=== PATIENT | female | born 1990 | race Hispanic/Latino ===

== ENCOUNTER 2022-01-06 10:54 | Emergency (ER) | payer MEDICAID ==
[2022-01-06 11:13] VITALS: BP 119/68
--- NOTE | 2022-01-06 14:06 | Emergency Department Report ---
ED ENT HPI - General Chief complaint: Dyspnea/Respdistress Stated complaint: ILL Time Seen by Provider: 01/06/22 13:52 Source: patient Mode of arrival: Ambulatory Limitations: No Limitations - History of Present Illness Initial comments: 31-year-old female with no past medical history presents to the emergency department with 3-day history of scratchy throat, sneezing, and cough. She denies fever shortness of breath, and fatigue. MD complaint: sore throat -: Gradual, days(s) (3) Location: throat Severity scale (0 -10): 0 Associated Symptoms: cough, sore throat, rhinorrhea. denies: fever, gum swelling, toothache, pain with swallowing, tinnitus, hearing loss, discharge from ear - Related Data Previous Rx's Medication Instructions Recorded Last Taken Type Cetirizine HCl/Pseudoephedrine 1 each PO BID #30 tab 01/06/22 Unknown Rx [Zyrtec-D Tablet] Allergies Allergy/AdvReac Type Severity Reaction Status Date / Time abilify Allergy Vomiting Uncoded 01/06/22 11:11 ED Dental HPI - General Chief complaint: Dyspnea/Respdistress Stated complaint: ILL Time Seen by Provider: 01/06/22 13:52 Source: patient Mode of arrival: Ambulatory Limitations: No Limitations - Related Data Previous Rx's Medication Instructions Recorded Last Taken Type Cetirizine HCl/Pseudoephedrine 1 each PO BID #30 tab 01/06/22 Unknown Rx [Zyrtec-D Tablet] Allergies Allergy/AdvReac Type Severity Reaction Status Date / Time abilify Allergy Vomiting Uncoded 01/06/22 11:11 ED Review of Systems ROS: Stated complaint: ILL Other details as noted in HPI Comment: All other systems reviewed and negative Constitutional: denies: chills, fever Eyes: denies: vision change ENT: throat pain, congestion. denies: ear pain, dental pain Respiratory: cough. denies: orthopnea, shortness of breath, SOB with exertion, SOB at rest, stridor, wheezing, other Cardiovascular: denies: chest pain, palpitations, dyspnea on exertion, orthopnea, edema, syncope, paroxysmal nocturnal dyspnea Gastrointestinal: denies: abdominal pain, nausea, vomiting, diarrhea, hematemesis, melena, hematochezia Skin: denies: rash, lesions Neurological: denies: headache, weakness, numbness Psychiatric: denies: anxiety ED Past Medical Hx - Medications Home Medications: Home Medications Medication Instructions Recorded Confirmed Last Taken Type Cetirizine HCl/Pseudoephedrine 1 each PO BID #30 tab 01/06/22 Unknown Rx [Zyrtec-D Tablet] ED Physical Exam - General Limitations: No Limitations General appearance: alert, in no apparent distress - Head Head exam: Present: atraumatic, normocephalic - Eye Eye exam: Present: normal appearance. Absent: conjunctival injection - ENT ENT exam: Absent: normal exam (Bilateral nasal mucosal edema and turbinate swelling. Tenderness to frontal sinus area), normal orophraynx (Erythema to posterior oropharynx) - Expanded ENT Exam Expanded Throat exam: Positive: normal inspection, tonsillar erythema. Negative: tonsillomegaly, tonsillar exudate, R peritonsillar mass, L peritonsillar mass - Neck Neck exam: Present: normal inspection. Absent: lymphadenopathy - Respiratory Respiratory exam: Present: normal lung sounds bilaterally. Absent: respiratory distress, wheezes, rales, rhonchi, stridor, chest wall tenderness - Cardiovascular Cardiovascular Exam: Present: regular rate, normal heart sounds - GI/Abdominal GI/Abdominal exam: Present: soft, normal bowel sounds. Absent: distended, tenderness, guarding, rebound, rigid - Extremities Exam Extremities exam: Present: normal inspection - Back Exam Back exam: Present: normal inspection. Absent: CVA tenderness (R), CVA tenderness (L), vertebral tenderness - Neurological Exam Neurological exam: Present: alert, oriented X3, normal gait, reflexes normal. Absent: motor sensory deficit - Psychiatric Psychiatric exam: Present: normal affect, normal mood - Skin Skin exam: Present: warm, dry, intact, normal color ED Course Vital Signs 01/06/22 11:12 Temperature 98.2 F Pulse Rate 69 Respiratory 20 Rate Blood Pressure 119/68 O2 Sat by Pulse 98 Oximetry ED Medical Decision Making - Medical Decision Making 31-year-old female with no past medical history presents to the emergency department with 3-day history of scratchy throat, sneezing, and cough. She denies fever shortness of breath, and fatigue. Complaints and exam consistent with sinusitis. No acute distress noted. Patient will be discharged home with prescription for Zyrtec-D to take for the next few weeks. She is advised to take medication as prescribed, drink plenty of noncaffeinated fluids, and follow-up with her primary care provider if no improvement or worsening symptoms. She verbalized understanding of and agreement with plan of care. Critical care attestation.: If time is entered above; I have spent that time in minutes in the direct care of this critically ill patient, excluding procedure time. ED Disposition Clinical Impression: Sinusitis Qualifiers: Sinusitis location: frontal Chronicity: acute Recurrence: non-recurrent Qualified Code(s): J01.10 - Acute frontal sinusitis, unspecified Disposition: 01 HOME / SELF CARE / HOMELESS Is pt being admited?: No Does the pt Need Aspirin: No Condition: Stable Instructions: Sinusitis, Adult, Gnzx-mo-Cian, How to Perform a Sinus Rinse Additional Instructions: Take medications as prescribed. Follow-up with primary care provider if no improvement or worsening symptoms. Prescriptions: Cetirizine HCl/Pseudoephedrine [Zyrtec-D Tablet] 1 each PO BID #30 tab Referrals: LUZ ELENA BARTON MD [Referring] - 3-5 Days Time of Disposition: 14:06
== END 2022-01-06 14:25 | disposition home or self-care (01) ==
LOC: ED 10:54
DX: J32.9 Chronic sinusitis, unspecified (principal); Z88.8 Allergy status to other drugs, medicaments and biological substances; Z79.899 Other long term (current) drug therapy
CPT/HCPCS: 99282

== ENCOUNTER 2022-02-07 01:02 | Emergency (ER) | payer MEDICAID ==
[2022-02-07 01:27] VITALS: BP 130/90
[2022-02-07 02:22] LABS: Basophils # (Auto) 0.1 K/mm3 (0.0-0.1); Basophils % (Auto) 0.5 % (0.0-1.8); Eosinophils # (Auto) 0.4 K/mm3 (0.0-0.4); Eosinophils % (Auto) 3.6 % (0.0-4.3); Hematocrit 36.7 % (30.3-42.9); Hemoglobin 12.3 gm/dl (10.1-14.3); Lymphocytes % (Auto) 29.9 % (13.4-35.0); Mean Corpuscular HGB Conc 34 % (30-34); Mean Corpuscular Volume 85 fl (79-97); Monocytes # (Auto) 0.7 K/mm3 (0.0-0.8); Monocytes % (Auto) 6.6 % (0.0-7.3); Platelet Count 253 K/mm3 (140-440); Red Blood Count 4.31 M/mm3 (3.65-5.03); Red Cell Distribution Width 15.3 % (13.2-15.2)
--- NOTE | 2022-02-07 02:26 | Emergency Department Report ---
ED Psych HPI - General Chief Complaint: Medical Clearance Stated Complaint: MATEO EVBILLY Time Seen by Provider: 02/07/22 01:51 Source: EMS Mode of arrival: Ambulatory - History of Present Illness Initial Comments: Patient is a 31-year-old female presenting to ED requesting placement in a psychiatric facility for auditory and visual hallucinations. States she threw away her psych medications due to not wanting to take them anymore. States the voices are telling her that she is not good enough. She denies SI or HI. - Related Data Previous Rx's Medication Instructions Recorded Last Taken Type Cetirizine HCl/Pseudoephedrine 1 each PO BID #30 tab 01/06/22 Unknown Rx [Zyrtec-D Tablet] Allergies Allergy/AdvReac Type Severity Reaction Status Date / Time abilify Allergy Vomiting Uncoded 01/06/22 11:11 ED Review of Systems ROS: Stated complaint: MAETO EVAL Other details as noted in HPI Comment: All other systems reviewed and negative Constitutional: no symptoms reported. denies: chills, fever Respiratory: denies: cough, shortness of breath, wheezing Cardiovascular: denies: chest pain, palpitations Endocrine: no symptoms reported Gastrointestinal: denies: abdominal pain, nausea, diarrhea Genitourinary: denies: urgency, dysuria, discharge Musculoskeletal: denies: back pain, joint swelling, arthralgia Skin: denies: rash, lesions Neurological: denies: headache, weakness, paresthesias Psychiatric: as per HPI, auditory hallucinations, visual hallucinations ED Past Medical Hx - Past Medical History Previous Medical History?: Yes Additional medical history: schizophrenia, anxiety, depression, bipolar - Social History Smoking Status: Current Every Day Smoker - Medications Home Medications: Home Medications Medication Instructions Recorded Confirmed Last Taken Type Cetirizine HCl/Pseudoephedrine 1 each PO BID #30 tab 01/06/22 Unknown Rx [Zyrtec-D Tablet] ED Physical Exam - General Limitations: No Limitations General appearance: alert, in no apparent distress - Head Head exam: Present: atraumatic, normocephalic - Eye Eye exam: Present: normal appearance - Respiratory Respiratory exam: Present: normal lung sounds bilaterally. Absent: respiratory distress - Cardiovascular Cardiovascular Exam: Present: regular rate, normal rhythm. Absent: systolic murmur, diastolic murmur, rubs, gallop - GI/Abdominal GI/Abdominal exam: Present: soft - Neurological Exam Neurological exam: Present: alert, oriented X3, CN II-XII intact - Psychiatric Psychiatric exam: Present: flat affect. Absent: homicidal ideation, suicidal ideation - Skin Skin exam: Present: warm, dry, intact, normal color ED Course Vital Signs 02/07/22 01:24 Temperature 97.6 F Pulse Rate 92 H Respiratory 18 Rate Blood Pressure 130/90 O2 Sat by Pulse 98 Oximetry ED Medical Decision Making - Lab Data Result diagrams: 02/07/22 02:02 02/07/22 02:02 Critical care attestation.: If time is entered above; I have spent that time in minutes in the direct care of this critically ill patient, excluding procedure time. ED Disposition Condition: Stable
[2022-02-07 02:38] LABS: Alanine Aminotransferase 11 units/L (7-56); Albumin 4.7 g/dL (3.9-5); BUN/Creatinine Ratio 16; Blood Urea Nitrogen 11 mg/dL (7-17); Calcium 9.2 mg/dL (8.4-10.2); Hemolysis Index 3
[2022-02-07] MEDS ORDERED: ONDANSETRON 4 MG/2 ML INJ ONE (09:13)
[2022-02-07] MEDS ORDERED: SUCCINYLCHOLINE CHLORIDE 200 MG/10 ML INJ MDV ONE (09:13)
[2022-02-07] MEDS ORDERED: ROCURONIUM 50 MG/5 ML INJ IV ONE ×2 (09:13)
[2022-02-07] MEDS ORDERED: fentaNYL 100 MCG/2 ML INJ ONE (09:14)
--- NOTE | 2022-02-07 10:11 | Consultation ---
History of Present Illness - Reason for Consult Consult date: 02/07/22 Reason for consult: mental health evaluation - History of Present Psychiatric Illness The patient is a 31 year old female with history of Schizophrenia. The patient is calm, alert and oriented x3. The patient reports that " I need to get back on my medications." She is unable to recall what medications she was previously on. She denies any current suicidal/homicidal ideation and denies hallucinations. PAST PSYCHIATRIC HISTORY Diagnoses: Schizophrenia Suicide attempts or Self-harm behavior: Yes Prior psychiatric hospitalizations: Yes Substance Abuse history: Denies Previous psychiatric medications tried: Unable to recall Outpatient treatment: Unknown PAST MEDICAL HISTORY: None reported Family Psychiatric History: None reported or documented SOCIAL HISTORY Marital Status: Single Living Arrangements: Lives in a correction Employment Status:Unemployed Access to guns/weapons: Denies Education: 10th grade History of Abuse: Denies Legal History: Incarceration REVIEW OF SYSTEMS Constitutional: Negative for weight loss ENT: Negative for stridor Respiratory: Negative for cough or hemoptysis All other systems reviewed and are negative MENTAL STATUS EXAMINATION General Appearance and Behavior: Age appropriate, good hygiene, wearing a ppropriate clothes, good eye contact, anxious, cooperative Cooperation: Participating/engaged Psychomotor Behavior: Psychomotor normal Mood:Ok Affect and affective range: congruent with stated mood Thought Process: Goal directed Thought Content: reality oriented Speech: Normal tone and pace Suicidal Ideation:Denies Homicidal Ideation: Denies Hallucinations: Denies Delusions: None Impulse Control: Limited Insight and Judgment: Limited insight and judgment Memory: Limited Attention: attentive Orientation: Alert, oriented Diagnoses: HX Schizophrenia Treatment Plan Continue home meds Seroquel 100mg po QHS PSYCHOTHERAPY: Supportive psychotherapy provided MEDICAL: Per primary team DELIRIUM PRECAUTIONS: Please re-orient patient frequently, keep lights on during the day, and minimize benzodiazepines and opiates as these medications could w orsen patient's confusion. 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 Cyanide Pot Hardener will provide patient with psychiatric outpatient resources. Will sign off. Thanks. Thank you for the consult. Case staffed with Dr. Clark Medications and Allergies Medications and Allergies Allergies Allergy/AdvReac Type Severity Reaction Status Date / Time abilify Allergy Vomiting Uncoded 01/06/22 11:11 Home Medications Medication Instructions Recorded Confirmed Last Taken Type Cetirizine HCl/Pseudoephedrine 1 each PO BID #30 tab 01/06/22 Unknown Rx [Zyrtec-D Tablet] QUEtiapine [SEROquel] 100 mg PO QHS 30 Days #30 tab 02/07/22 Unknown Rx Mental Status Exam - Vital signs Last Vital Signs Temp 97.6 F 02/07/22 01:24 Pulse 92 H 02/07/22 01:24 Resp 18 02/07/22 01:24 BP 130/90 02/07/22 01:24 Pulse Ox 100 02/07/22 01:27 Results Result Diagrams: 02/07/22 02:02 02/07/22 02:02 Abnormal lab results 02/07/22 02/07/22 02/07/22 Range/Units 02:02 02:02 02:02 RDW 15.3 H (13.2-15.2) % Glucose 115 H (65-100) mg/dL Salicylates < 0.3 L (2.8-20.0) mg/dL Acetaminophen (10.0-30.0) ug/mL 02/07/22 Range/Units 02:02 RDW (13.2-15.2) % Glucose (65-100) mg/dL Salicylates (2.8-20.0) mg/dL Acetaminophen 5.0 L (10.0-30.0) ug/mL All other labs normal.
--- NOTE | 2022-02-07 11:31 | Event Note ---
Date: 02/07/22 no events overnight , assessed by psych , mediclly cleared , will discharge with meds with OP follow up
== END 2022-02-07 12:00 | disposition home or self-care (01) ==
LOC: ED 01:02 → EEVIPCON 01:02 → ED 12:00
DX: F17.200 Nicotine dependence, unspecified, uncomplicated (principal); F20.9 Schizophrenia, unspecified; F41.9 Anxiety disorder, unspecified; F31.9 Bipolar disorder, unspecified
CPT/HCPCS: 36415; 80053; 85025; 99284; J0330; J3490; 80320; G0480; J2405; J3010

== ENCOUNTER 2022-02-08 02:04 | Emergency (ER) | payer MEDICAID ==
--- NOTE | 2022-02-08 02:25 | Emergency Department Report ---
ED General Adult HPI - General Chief complaint: Psych Stated complaint: im depressed Source: patient, EMS ( EMS documentation not available at time of chart dictation ), RN notes reviewed, old records reviewed Mode of arrival: Ambulatory Limitations: No Limitations - History of Present Illness Initial comments: This patient is a 31-year-old female who presents to the ER today with a complaint of painless depression. She was seen in this department yesterday for similar symptoms. She was seen, treated, and dispositioned appropriately, given outpatient resources and prescri ptions. The patient reports a presents today with EMS with a complaint of "I am depressed." The patient denies physical pain. The patient states that "everything is bothering me." The patient then informed the charge nurse and myself that she is suicidal because she cannot get herself to a mental hospital. The patient stated that she took an ambulance here because she does not have money to get herself to a mental hospital. The patient refuses to allow a physical exam, and also refuses to answer additional questions about review of systems Consistency: constant - Related Data Previous Rx's Medication Instructions Recorded Last Taken Type Cetirizine HCl/Pseudoephedrine 1 each PO BID #30 tab 01/06/22 Unknown Rx [Zyrtec-D Tablet] QUEtiapine [SEROquel] 100 mg PO QHS 30 Days #30 tab 02/07/22 Unknown Rx Allergies Allergy/AdvReac Type Severity Reaction Status Date / Time abilify Allergy Vomiting Uncoded 01/06/22 11:11 ED Review of Systems ROS: Stated complaint: Other details as noted in HPI Cardiovascular: denies: chest pain Musculoskeletal: denies: back pain Psychiatric: anxiety, depression, suicidal thoughts ED Past Medical Hx - Past Medical History Previous Medical History?: Yes Additional medical history: schizophrenia, anxiety, depression, bipolar - Social History Smoking Status: Never Smoker - Medications Home Medications: Home Medications Medication Instructions Recorded Confirmed Last Taken Type Cetirizine HCl/Pseudoephedrine 1 each PO BID #30 tab 01/06/22 Unknown Rx [Zyrtec-D Tablet] QUEtiapine [SEROquel] 100 mg PO QHS 30 Days #30 tab 02/07/22 Unknown Rx ED Physical Exam - General Limitations: No Limitations General appearance: alert, in no apparent distress - Head Head exam: Present: atraumatic, normocephalic - Eye Eye exam: Present: normal appearance, EOMI. Absent: nystagmus - ENT ENT exam: Present: normal exam, normal orophraynx, mucous membranes moist, normal external ear exam - Neck Neck exam: Present: normal inspection, full ROM - Respiratory Respiratory exam: Absent: respiratory distress, stridor - Extremities Exam Extremities exam: Present: normal inspection, full ROM - Back Exam Back exam: Present: normal inspection, full ROM - Neurological Exam Neurological exam: Present: alert, normal gait, other (There is no facial droop. The tongue is midline. EOMI. 5 out of 5 strength in 4 extremities.) - Psychiatric Psychiatric exam: Present: agitated, anxious - Skin Skin exam: Present: dry, normal color ED Course Vital Signs 02/08/22 02/08/22 02:08 02:47 Temperature 97.9 F 98.4 F Pulse Rate 86 83 Respiratory 16 18 Rate Blood Pressure 130/96 Blood Pressure 115/85 [Right] O2 Sat by Pulse 98 95 Oximetry - Reevaluation(s) Reevaluation #1: 02/08/22 03:56 Laboratory studies are unremarkable. Start Macrobid for bacteriuria with pyuria. COVID swab pending. Emergency room will follow along as the patient provides a COVID sample. At this point time, this patient does not appear to have an immediate medical contraindication to psychiatric admission, evaluation, consultation and placement. I anticipate that the psychiatric team will agree that the patient is malingering and discharged with outpatient resources. ED Medical Decision Making - Lab Data Result diagrams: 02/08/22 02:37 02/08/22 02:37 Vital Signs 02/08/22 02/08/22 02:08 02:47 Temperature 97.9 F 98.4 F Pulse Rate 86 83 Respiratory 16 18 Rate Blood Pressure 130/96 Blood Pressure 115/85 [Right] O2 Sat by Pulse 98 95 Oximetry Lab Results 02/08/22 02/08/22 02/08/22 Range/Units 02:37 02:37 02:37 WBC (4.5-11.0) K/mm3 RBC (3.65-5.03) M/mm3 Hgb (10.1-14.3) gm/dl Hct (30.3-42.9) % MCV (79-97) fl MCH (28-32) pg MCHC (30-34) % RDW (13.2-15.2) % Plt Count (140-440) K/mm3 Sodium 139 (137-145) mmol/L Potassium 3.5 L (3.6-5.0) mmol/L Chloride 102.9 (98-107) mmol/L Carbon Dioxide 21 L (22-30) mmol/L Anion Gap 19 mmol/L BUN 11 (7-17) mg/dL Creatinine 0.7 (0.6-1.2) mg/dL Estimated GFR > 60 ml/min BUN/Creatinine Ratio 16 % Glucose 111 H (65-100) mg/dL Calcium 9.3 (8.4-10.2) mg/dL HCG, Qual (Negative) Urine Color (Yellow) Urine Turbidity (Clear) Urine pH (5.0-7.0) Ur Specific Schurz (1.003-1.030) Urine Protein (Negative) mg/dL Urine Glucose (UA) (Negative) mg/dL Urine Ketones (Negative) mg/dL Urine Blood (Negative) Urine Nitrite (Negative) Urine Bilirubin (Negative) Urine Urobilinogen (<2.0) mg/dL Ur Leukocyte Esterase (Negative) Urine WBC (Auto) (0.0-6.0) /HPF Urine RBC (Auto) (0.0-6.0) /HPF U Epithel Cells (Auto) (0-13.0) /HPF Urine Bacteria (Auto) (Negative) /HPF Urine Mucus /HPF Urine Yeast (Budding) /HPF Salicylates < 0.3 L (2.8-20.0) mg/dL Urine Opiates Screen Urine Methadone Screen Acetaminophen 5.0 L (10.0-30.0) ug/mL Ur Barbiturates Screen Ur Phencyclidine Scrn Ur Amphetamines Screen U Benzodiazepines Scrn Urine Cocaine Screen U Marijuana (THC) Screen Drugs of Abuse Note Plasma/Serum Alcohol (0-0.07) % 02/08/22 02/08/22 02/08/22 Range/Units 02:37 02:37 02:37 WBC 11.4 H (4.5-11.0) K/mm3 RBC 4.46 (3.65-5.03) M/mm3 Hgb 12.7 (10.1-14.3) gm/dl Hct 38.2 (30.3-42.9) % MCV 86 (79-97) fl MCH 28 (28-32) pg MCHC 33 (30-34) % RDW 15.2 (13.2-15.2) % Plt Count 282 (140-440) K/mm3 Sodium (137-145) mmol/L Potassium (3.6-5.0) mmol/L Chloride (98-107) mmol/L Carbon Dioxide (22-30) mmol/L Anion Gap mmol/L BUN (7-17) mg/dL Creatinine (0.6-1.2) mg/dL Estimated GFR ml/min BUN/Creatinine Ratio % Glucose (65-100) mg/dL Calcium (8.4-10.2) mg/dL HCG, Qual Negative (Negative) Urine Color (Yellow) Urine Turbidity (Clear) Urine pH (5.0-7.0) Ur Specific Schurz (1.003-1.030) Urine Protein (Negative) mg/dL Urine Glucose (UA) (Negative) mg/dL Urine Ketones (Negative) mg/dL Urine Blood (Negative) Urine Nitrite (Negative) Urine Bilirubin (Negative) Urine Urobilinogen (<2.0) mg/dL Ur Leukocyte Esterase (Negative) Urine WBC (Auto) (0.0-6.0) /HPF Urine RBC (Auto) (0.0-6.0) /HPF U Epithel Cells (Auto) (0-13.0) /HPF Urine Bacteria (Auto) (Negative) /HPF Urine Mucus /HPF Urine Yeast (Budding) /HPF Salicylates (2.8-20.0) mg/dL Urine Opiates Screen Urine Methadone Screen Acetaminophen (10.0-30.0) ug/mL Ur Barbiturates Screen Ur Phencyclidine Scrn Ur Amphetamines Screen U Benzodiazepines Scrn Urine Cocaine Screen U Marijuana (THC) Screen Drugs of Abuse Note Plasma/Serum Alcohol < 0.01 (0-0.07) % 02/08/22 02/08/22 Range/Units 02:42 02:42 WBC (4.5-11.0) K/mm3 RBC (3.65-5.03) M/mm3 Hgb (10.1-14.3) gm/dl Hct (30.3-42.9) % MCV (79-97) fl MCH (28-32) pg MCHC (30-34) % RDW (13.2-15.2) % Plt Count (140-440) K/mm3 Sodium (137-145) mmol/L Potassium (3.6-5.0) mmol/L Chloride (98-107) mmol/L Carbon Dioxide (22-30) mmol/L Anion Gap mmol/L BUN (7-17) mg/dL Creatinine (0.6-1.2) mg/dL Estimated GFR ml/min BUN/Creatinine Ratio % Glucose (65-100) mg/dL Calcium (8.4-10.2) mg/dL HCG, Qual (Negative) Urine Color Yellow (Yellow) Urine Turbidity Clear (Clear) Urine pH 5.0 (5.0-7.0) Ur Specific Schurz 1.030 (1.003-1.030) Urine Protein 30 mg/dl (Negative) mg/dL Urine Glucose (UA) Neg (Negative) mg/dL Urine Ketones Neg (Negative) mg/dL Urine Blood Lg (Negative) Urine Nitrite Neg (Negative) Urine Bilirubin Neg (Negative) Urine Urobilinogen 4.0 (<2.0) mg/dL Ur Leukocyte Esterase Neg (Negative) Urine WBC (Auto) 11.0 H (0.0-6.0) /HPF Urine RBC (Auto) 5.0 (0.0-6.0) /HPF U Epithel Cells (Auto) 4.0 (0-13.0) /HPF Urine Bacteria (Auto) 1+ (Negative) /HPF Urine Mucus 3+ /HPF Urine Yeast (Budding) Few /HPF Salicylates (2.8-20.0) mg/dL Urine Opiates Screen Presumptive negative Urine Methadone Screen Presumptive negative Acetaminophen (10.0-30.0) ug/mL Ur Barbiturates Screen Presumptive negative Ur Phencyclidine Scrn Presumptive negative Ur Amphetamines Screen Presumptive negative U Benzodiazepines Scrn Presumptive negative Urine Cocaine Screen Presumptive negative U Marijuana (THC) Screen Presumptive positive Drugs of Abuse Note Disclamer Plasma/Serum Alcohol (0-0.07) % - Medical Decision Making Differential diagnosis, including but not limited to: Malingering, secondary gain, behavioral health screening examination Assessment and plan: 31-year-old female who was medically cleared yesterday, giv en outpatient resources, presented today with a complaint of wanting to go to a mental hospital, when informed that she would not be able to go to a mental hospital because she does not meet 1013 criteria, the patient then started to endorse suicidality. I highly suspect that this patient is malingering for the purposes of secondary gain. Nevertheless, place patient on 1013, check appropriate laboratory studies, obtain psychiatric consultation. Reassess after labs Patient refused a physical examination. Her recent documented physical exam is benign and unremarkable. Her external physical examination from observation appears to be unremarkable Critical care attestation.: If time is entered above; I have spent that time in minutes in the direct care of this critically ill patient, excluding procedure time. ED Disposition Clinical Impression: Malingering, Medical clearance for psychiatric admission, Depression Disposition: [address] [place] [address] HOSPITAL Is pt being admited?: No Does the pt Need Aspirin: No Condition: Good
[2022-02-08] MEDS ORDERED: LORazepam 2 MG/ML VIAL IM PRN (02:27)
[2022-02-08] MEDS ORDERED: HALOPERIDOL LACTATE 5 MG/1 ML INJ IM PRN (02:27)
[2022-02-08 03:10] LABS: Hematocrit 38.2 % (30.3-42.9); Hemoglobin 12.7 gm/dl (10.1-14.3); Mean Corpuscular HGB Conc 33 % (30-34); Mean Corpuscular Volume 86 fl (79-97); Platelet Count 282 K/mm3 (140-440); Red Blood Count 4.46 M/mm3 (3.65-5.03); Red Cell Distribution Width 15.2 % (13.2-15.2)
[2022-02-08 03:17] LABS: Blood Urea Nitrogen 11 mg/dL (7-17); Calcium 9.3 mg/dL (8.4-10.2); Hemolysis Index 4
[2022-02-08 03:21] LABS: BUN/Creatinine Ratio 16
[2022-02-08 03:37] LABS: Amphetamine Screen,Urine PRESUMPTIVE NEGATIVE; Benzodiazepines Screen,Urine PRESUMPTIVE NEGATIVE; Cannabinoid Screen,Urine PRESUMPTIVE POSITIVE; Cocaine Screen,Urine PRESUMPTIVE NEGATIVE; Methadone Screen,Urine PRESUMPTIVE NEGATIVE; Opiate Screen,Urine PRESUMPTIVE NEGATIVE
[2022-02-08 03:43] LABS: Bacteria,Urine 1+ /HPF (Negative); Bilirubin,Urine NEG (Negative); Blood,Urine LG (Negative); Color,Urine Yellow (Yellow); Mucus,Urine 3+ /HPF
[2022-02-08] MEDS: NITROFURANTOIN MONOHYD/M-CRYST 100 MG CAP PO SCH ×3 (09:22→22:57)
--- NOTE | 2022-02-08 11:34 | Consultation ---
History of Present Illness - Reason for Consult Consult date: 02/08/22 Reason for consult: Hallucinations/ SI - History of Present Psychiatric Illness The patient is a 31 year old female with history of Schizophrenia. The patient is calm, alert and orientedx2. The patient was discharged yesterday; today, the patient states that " I'm seeing things and hearing things, I feel like they're rapping me." The patient endorses depression and suicidal ideation with no plan. PAST PSYCHIATRIC HISTORY Diagnoses: Schizophrenia Suicide attempts or Self-harm behavior: Yes Prior psychiatric hospitalizations: Yes Substance Abuse history: Denies Previous psychiatric medications tried: Unable to recall Outpatient treatment: Unknown PAST MEDICAL HISTORY: None reported Family Psychiatric History: None reported or documented SOCIAL HISTORY Marital Status: Single Living Arrangements: Lives in a long term Employment Status:Unemployed Access to guns/weapons: Denies Education: 10th grade History of Abuse: Denies Legal History: Incarceration REVIEW OF SYSTEMS Constitutional: Negative for weight loss ENT: Negative for stridor Respiratory: Negative for cough or hemoptysis All other systems reviewed and are negative MENTAL STATUS EXAMINATION General Appearance and Behavior: Age appropriate, good hygiene, wearing approp riate clothes, good eye contact, anxious, cooperative Cooperation: Participating/engaged Psychomotor Behavior: Psychomotor normal Mood:Ok Affect and affective range: congruent with stated mood Thought Process: Goal directed Thought Content: reality oriented Speech: Normal tone and pace Suicidal Ideation:Denies Homicidal Ideation: Denies Hallucinations: Denies Delusions: None Impulse Control: Limited Insight and Judgment: Limited insight and judgment Memory: Limited Attention: attentive Orientation: Alert, oriented Diagnoses: Schizophrenia Treatment Plan Continue home meds Seroquel 100mg po QHS [id number] po BID PSYCHOTHERAPY: Supportive psychotherapy provided MEDICAL: Per primary team DELIRIUM PRECAUTIONS: Please re-orient patient frequently, keep lights on during the day, and minimize benzodiazepines and opiates as these medications could worsen patient's confusion. PRUNE WASHER: Per medical team DISPOSITION:Recommend acute psychiatric inpatient treatment. Will follow. Thanks. Thank you for the consult. Case staffed with Dr. Clark Medications and Allergies Medications and Allergies Allergies Allergy/AdvReac Type Severity Reaction Status Date / Time abilify Allergy Vomiting Uncoded 01/06/22 11:11 Home Medications Medication Instructions Recorded Confirmed Last Taken Type Cetirizine HCl/Pseudoephedrine 1 each PO BID #30 tab 01/06/22 Unknown Rx [Zyrtec-D Tablet] QUEtiapine [SEROquel] 100 mg PO QHS 30 Days #30 tab 02/07/22 Unknown Rx Active Meds: Active Medications Haloperidol Lactate (Haloperidol Lactate 5 Mg/1 Ml Inj) 5 mg IM Q6HR PRN PRN Reason: Agitation Lorazepam (Lorazepam 2 Mg/Ml Vial) 2 mg IM Q4HR PRN PRN Reason: Agitation Nitrofurantoin Macrocrystals (Nitrofurantoin Monohyd/M-Cryst 100 Mg Cap) 100 mg PO Q12HR STEPHANIE Stop: 02/14/22 10:01 Last Admin: 02/08/22 09:22 Dose: 100 mg Mental Status Exam - Vital signs Last Vital Signs Temp 98.4 F 02/08/22 02:47 Pulse 83 02/08/22 02:47 Resp 18 02/08/22 02:47 BP 115/85 02/08/22 02:47 Pulse Ox 95 02/08/22 02:47 Results Result Diagrams: 02/08/22 02:37 02/08/22 02:37 Abnormal lab results 02/08/22 02/08/22 02/08/22 Range/Units 02:37 02:37 02:37 WBC (4.5-11.0) K/mm3 Potassium 3.5 L (3.6-5.0) mmol/L Carbon Dioxide 21 L (22-30) mmol/L Glucose 111 H (65-100) mg/dL Urine WBC (Auto) (0.0-6.0) /HPF Salicylates < 0.3 L (2.8-20.0) mg/dL Acetaminophen 5.0 L (10.0-30.0) ug/mL 02/08/22 02/08/22 Range/Units 02:37 02:42 WBC 11.4 H (4.5-11.0) K/mm3 Potassium (3.6-5.0) mmol/L Carbon Dioxide (22-30) mmol/L Glucose (65-100) mg/dL Urine WBC (Auto) 11.0 H (0.0-6.0) /HPF Salicylates (2.8-20.0) mg/dL Acetaminophen (10.0-30.0) ug/mL All other labs normal.
--- NOTE | 2022-02-08 11:49 | Event Note ---
Date: 02/08/22 Patient is 31 years old female admitted to the emergency room for suicidal ideation. Vital signs stable. Labs reviewed and is unremarkable. Patient has been evaluated by psychiatric team and recommended inpatient psychiatric admission.
[2022-02-08] MEDS ORDERED: methylPREDNISolone Sod Succinate 125 MG/2 ML INJ ONE (12:10)
[2022-02-08] MEDS ORDERED: diphenhydrAMINE 25 MG/10 ML ORAL LIQUID ONE (12:11)
[2022-02-08] MEDS ORDERED: diphenhydrAMINE 50 MG/ML VIAL ONE (12:11)
[2022-02-08] MEDS ORDERED: ALBUTEROL 2.5 MG/3 ML NEBU IH ONE (12:42)
[2022-02-08] MEDS ORDERED: IPRATROPIUM 0.02% NEBU 2.5 ML IH ONE (12:42)
[2022-02-08] MEDS: QUEtiapine 25 MG TAB PO SCH (17:08)
[2022-02-08] MEDS ORDERED: QUEtiapine 100 MG TAB PO SCH (22:00)
--- NOTE | 2022-02-09 11:10 | Progress Note ---
Subjective - Reason for Consult Consult date: 02/09/22 Reason for consult: Mental health evaluation - Chief Complaint Chief complaint: The patient was seen today. She reports doing well. She reports sleep and appetite as godd. the patient denies any current suicidal/homicidal ideation and denies hallucinations. REVIEW OF SYSTEMS Constitutional: Negative for weight loss ENT: Negative for stridor Respiratory: Negative for cough or hemoptysis All other systems reviewed and are negative MENTAL STATUS EXAMINATION General Appearance and Behavior: Age appropriate, good hygiene, wearing appropriate clothes, good eye contact, anxious, cooperative Cooperation: Participating/engaged Psychomotor Behavior: Psychomotor normal Mood:Ok Affect and affective range: congruent with stated mood Thought Process: Goal directed Thought Content: reality oriented Speech: Normal tone and pace Suicidal Ideation:Denies Homicidal Ideation: Denies Hallucinations: Denies Delusions: None Impulse Control: Limited Insight and Judgment: Limited insight and judgment Memory: Limited Attention: attentive Orientation: Alert, oriented Diagnoses: Schizophrenia Treatment Plan Continue home meds Continue Seroquel 100mg po QHS PSYCHOTHERAPY: Supportive psychotherapy provided MEDICAL: Per primary team DELIRIUM PRECAUTIONS: Please re-orient patient frequently, keep lights on during the day, and minimize benzodiazepines and opiates as these medications could worsen patient's confusion. JANITOR HELPER: Per medical team DISPOSITION:Do not recommend acute psychiatric inpatient treatment. Coach Mechanic will provide patient with psychiatric outpatient resources. Will sign off. Thank you for the consult. Case staffed with Dr. Clark Medications and Allergies Mental Status Exam - Vital signs Last Vital Signs Temp 98.2 F 02/09/22 09:25 Pulse 70 02/09/22 09:25 Resp 18 02/09/22 09:25 BP 113/68 02/09/22 09:25 Pulse Ox 98 02/09/22 09:25
[2022-02-09] MEDS: QUEtiapine 25 MG TAB PO SCH (11:24)
[2022-02-09] MEDS: NITROFURANTOIN MONOHYD/M-CRYST 100 MG CAP PO SCH (11:24)
--- NOTE | 2022-02-09 12:42 | Event Note ---
Date: 02/09/22 The patient was evaluated in the emergency department for symptoms described in the history of present illness. He/she was evaluated in the context of the global COVID-19 pandemic, which necessitated consideration that the patient might be at risk for infection with the virus that causes COVID-19. Institutional protocols and algorithms that pertain to the evaluation of patients at risk for COVID-19 are in a state of rapid change based on information released by regulatory bodies including the CDC and federal and state organizations. These policies and algorithms were followed during the patient's care in the emergency department. Please note that these policies, procedures and recommendations changed on a rapid basis. Laboratory studies, vital signs, nursing documentation, ER documentation, and psychiatric documentation are reviewed and appreciated. Nursing team reports no acute events this morning or concerns. The patient is awake and does not appear to be in any acute distress The patient was deemed medically suitable for psychiatric disposition and placement during her initial ER evaluation. The patient continues to remain medically suitable for psychiatric placement and disposition. Psychiatry team have advised that 1013 is no longer necessary and may be discontinued. I medically cleared the patient on her initial ER evaluation. She may be discharged with Macrobid. She has received 4 doses of Macrobid while here in the emergency room for bacteriuria. Vital Signs 02/08/22 02/08/22 02/08/22 02:08 02:47 11:27 Temperature 97.9 F 98.4 F 98.7 F Pulse Rate 86 83 79 Respiratory 16 18 15 Rate Blood Pressure 130/96 Blood Pressure 115/85 104/75 [Right] O2 Sat by Pulse 98 95 99 Oximetry 02/08/22 02/09/22 02/09/22 15:39 09:25 11:21 Temperature 98.7 F 98.2 F Pulse Rate 68 70 Respiratory 15 18 18 Rate Blood Pressure Blood Pressure 119/81 113/68 [Right] O2 Sat by Pulse 99 98 99 Oximetry Lab Results 02/08/22 02/08/22 02/08/22 Range/Units 02:37 02:37 02:37 WBC (4.5-11.0) K/mm3 RBC (3.65-5.03) M/mm3 Hgb (10.1-14.3) gm/dl Hct (30.3-42.9) % MCV (79-97) fl MCH (28-32) pg MCHC (30-34) % RDW (13.2-15.2) % Plt Count (140-440) K/mm3 Sodium 139 (137-145) mmol/L Potassium 3.5 L (3.6-5.0) mmol/L Chloride 102.9 (98-107) mmol/L Carbon Dioxide 21 L (22-30) mmol/L Anion Gap 19 mmol/L BUN 11 (7-17) mg/dL Creatinine 0.7 (0.6-1.2) mg/dL Estimated GFR > 60 ml/min BUN/Creatinine Ratio 16 % Glucose 111 H (65-100) mg/dL Calcium 9.3 (8.4-10.2) mg/dL HCG, Qual (Negative) Urine Color (Yellow) Urine Turbidity (Clear) Urine pH (5.0-7.0) Ur Specific [place] (1.003-1.030) Urine Protein (Negative) mg/dL Urine Glucose (UA) (Negative) mg/dL Urine Ketones (Negative) mg/dL Urine Blood (Negative) Urine Nitrite (Negative) Urine Bilirubin (Negative) Urine Urobilinogen (<2.0) mg/dL Ur Leukocyte Esterase (Negative) Urine WBC (Auto) (0.0-6.0) /HPF Urine RBC (Auto) (0.0-6.0) /HPF U Epithel Cells (Auto) (0-13.0) /HPF Urine Bacteria (Auto) (Negative) /HPF Urine Mucus /HPF Urine Yeast (Budding) /HPF Salicylates < 0.3 L (2.8-20.0) mg/dL Urine Opiates Screen Urine Methadone Screen Acetaminophen 5.0 L (10.0-30.0) ug/mL Ur Barbiturates Screen Ur Phencyclidine Scrn Ur Amphetamines Screen U Benzodiazepines Scrn Urine Cocaine Screen U Marijuana (THC) Screen Drugs of Abuse Note Plasma/Serum Alcohol (0-0.07) % SARS-CoV-2 (PCR) (Negative) 02/08/22 02/08/22 02/08/22 Range/Units 02:37 02:37 02:37 WBC 11.4 H (4.5-11.0) K/mm3 RBC 4.46 (3.65-5.03) M/mm3 Hgb 12.7 (10.1-14.3) gm/dl Hct 38.2 (30.3-42.9) % MCV 86 (79-97) fl MCH 28 (28-32) pg MCHC 33 (30-34) % RDW 15.2 (13.2-15.2) % Plt Count 282 (140-440) K/mm3 Sodium (137-145) mmol/L Potassium (3.6-5.0) mmol/L Chloride (98-107) mmol/L Carbon Dioxide (22-30) mmol/L Anion Gap mmol/L BUN (7-17) mg/dL Creatinine (0.6-1.2) mg/dL Estimated GFR ml/min BUN/Creatinine Ratio % Glucose (65-100) mg/dL Calcium (8.4-10.2) mg/dL HCG, Qual Negative (Negative) Urine Color (Yellow) Urine Turbidity (Clear) Urine pH (5.0-7.0) Ur Specific [place] (1.003-1.030) Urine Protein (Negative) mg/dL Urine Glucose (UA) (Negative) mg/dL Urine Ketones (Negative) mg/dL Urine Blood (Negative) Urine Nitrite (Negative) Urine Bilirubin (Negative) Urine Urobilinogen (<2.0) mg/dL Ur Leukocyte Esterase (Negative) Urine WBC (Auto) (0.0-6.0) /HPF Urine RBC (Auto) (0.0-6.0) /HPF U Epithel Cells (Auto) (0-13.0) /HPF Urine Bacteria (Auto) (Negative) /HPF Urine Mucus /HPF Urine Yeast (Budding) /HPF Salicylates (2.8-20.0) mg/dL Urine Opiates Screen Urine Methadone Screen Acetaminophen (10.0-30.0) ug/mL Ur Barbiturates Screen Ur Phencyclidine Scrn Ur Amphetamines Screen U Benzodiazepines Scrn Urine Cocaine Screen U Marijuana (THC) Screen Drugs of Abuse Note Plasma/Serum Alcohol < 0.01 (0-0.07) % SARS-CoV-2 (PCR) (Negative) 02/08/22 02/08/22 02/08/22 Range/Units 02:42 02:42 09:30 WBC (4.5-11.0) K/mm3 RBC (3.65-5.03) M/mm3 Hgb (10.1-14.3) gm/dl Hct (30.3-42.9) % MCV (79-97) fl MCH (28-32) pg MCHC (30-34) % RDW (13.2-15.2) % Plt Count (140-440) K/mm3 Sodium (137-145) mmol/L Potassium (3.6-5.0) mmol/L Chloride (98-107) mmol/L Carbon Dioxide (22-30) mmol/L Anion Gap mmol/L BUN (7-17) mg/dL Creatinine (0.6-1.2) mg/dL Estimated GFR ml/min BUN/Creatinine Ratio % Glucose (65-100) mg/dL Calcium (8.4-10.2) mg/dL HCG, Qual (Negative) Urine Color Yellow (Yellow) Urine Turbidity Clear (Clear) Urine pH 5.0 (5.0-7.0) Ur Specific [place] 1.030 (1.003-1.030) Urine Protein 30 mg/dl (Negative) mg/dL Urine Glucose (UA) Neg (Negative) mg/dL Urine Ketones Neg (Negative) mg/dL Urine Blood Lg (Negative) Urine Nitrite Neg (Negative) Urine Bilirubin Neg (Negative) Urine Urobilinogen 4.0 (<2.0) mg/dL Ur Leukocyte Esterase Neg (Negative) Urine WBC (Auto) 11.0 H (0.0-6.0) /HPF Urine RBC (Auto) 5.0 (0.0-6.0) /HPF U Epithel Cells (Auto) 4.0 (0-13.0) /HPF Urine Bacteria (Auto) 1+ (Negative) /HPF Urine Mucus 3+ /HPF Urine Yeast (Budding) Few /HPF Salicylates (2.8-20.0) mg/dL Urine Opiates Screen Presumptive negative Urine Methadone Screen Presumptive negative Acetaminophen (10.0-30.0) ug/mL Ur Barbiturates Screen Presumptive negative Ur Phencyclidine Scrn Presumptive negative Ur Amphetamines Screen Presumptive negative U Benzodiazepines Scrn Presumptive negative Urine Cocaine Screen Presumptive negative U Marijuana (THC) Screen Presumptive positive Drugs of Abuse Note Disclamer Plasma/Serum Alcohol (0-0.07) % SARS-CoV-2 (PCR) Negative (Negative)
[2022-02-09 14:24] VITALS: BP 109/69
== END 2022-02-09 14:24 | disposition home or self-care (01) ==
LOC: ED 02:04
DX: F32.A Depression, unspecified (principal); Z76.5 Malingerer [conscious simulation]; Z13.30 Encounter for screening examination for mental health and behavioral disorders, unspecified; Z91.09 Other allergy status, other than to drugs and biological substances; Z79.899 Other long term (current) drug therapy; Z20.822 Contact with and (suspected) exposure to COVID-19
CPT/HCPCS: 36415; 80048; 80307; 81001; 84703; 85027; 87086; 99284; J1200; J2930; Q0163; U0003; 80320; G0480

== ENCOUNTER 2022-02-17 03:26 | Emergency (ER) | payer MEDICAID ==
--- NOTE | 2022-02-17 03:57 | Emergency Department Report ---
<FRANKIE ANGELES - Last Filed: 02/17/22 03:54> ED Psych HPI - General Chief Complaint: Psych Stated Complaint: SUICIDAL IDEATIONS Time Seen by Provider: 02/17/22 03:43 Source: patient, EMS Mode of arrival: Ambulatory - History of Present Illness Initial Comments: Patient is 31 years old female with history of bipolar and schizophrenia. Patient brought to the emergency room via EMS from home for mental health evaluation. Patient stated that she is suicidal but she does not have a specific plan. She denied any auditory or visual hallucination. No homicidal ideation. MD Complaint: suicidal ideation -: Gradual Associated Psychiatric Symptoms: suicidal ideation Associated Symptoms: denies other symptoms Treatments Prior to Arrival: none If Self Harm: admits thoughts of - Related Data Previous Rx's Medication Instructions Recorded Last Taken Type Cetirizine HCl/Pseudoephedrine 1 each PO BID #30 tab 01/06/22 Unknown Rx [Zyrtec-D Tablet] QUEtiapine [SEROquel] 100 mg PO QHS 30 Days #30 tab 02/07/22 Unknown Rx Nitrofurantoin Wells/M-Cryst 100 mg PO Q12HR #10 capsule 02/09/22 Unknown Rx [Macrobid CAP] Allergies Allergy/AdvReac Type Severity Reaction Status Date / Time abilify Allergy Vomiting Uncoded 01/06/22 11:11 ED Review of Systems Comment: All other systems reviewed and negative Constitutional: denies: chills, fever Respiratory: denies: cough, shortness of breath, SOB with exertion Cardiovascular: denies: chest pain, palpitations Gastrointestinal: denies: abdominal pain, nausea Musculoskeletal: denies: back pain Neurological: denies: headache, weakness, numbness, paresthesias, confusion Psychiatric: suicidal thoughts. denies: auditory hallucinations, visual hallucinations, homicidal thoughts ED Past Medical Hx - Past Medical History Previous Medical History?: Yes Additional medical history: schizophrenia, anxiety, depression, bipolar - Surgical History Past Surgical History?: No - Social History Smoking Status: Never Smoker - Medications Home Medications: Home Medications Medication Instructions Recorded Confirmed Last Taken Type Cetirizine HCl/Pseudoephedrine 1 each PO BID #30 tab 01/06/22 Unknown Rx [Zyrtec-D Tablet] QUEtiapine [SEROquel] 100 mg PO QHS 30 Days #30 tab 02/07/22 Unknown Rx Nitrofurantoin Wells/M-Cryst 100 mg PO Q12HR #10 capsule 02/09/22 Unknown Rx [Macrobid CAP] ED Physical Exam - General Limitations: No Limitations General appearance: alert, in no apparent distress - Head Head exam: Present: atraumatic, normocephalic, normal inspection - Eye Eye exam: Present: normal appearance - ENT ENT exam: Present: normal exam, normal orophraynx, mucous membranes moist - Neck Neck exam: Present: normal inspection, full ROM. Absent: tenderness, meningismus - Respiratory Respiratory exam: Present: normal lung sounds bilaterally - Cardiovascular Cardiovascular Exam: Present: regular rate, normal rhythm, normal heart sounds - GI/Abdominal GI/Abdominal exam: Present: soft, normal bowel sounds. Absent: distended, tenderness, guarding, rebound, rigid, organomegaly, mass, bruit, pulsatile mass, hernia - Extremities Exam Extremities exam: Present: normal inspection, full ROM, normal capillary refill. Absent: tenderness, pedal edema, joint swelling, calf tenderness - Back Exam Back exam: Present: normal inspection, full ROM. Absent: CVA tenderness (R), CVA tenderness (L) - Neurological Exam Neurological exam: Present: alert, oriented X3, CN II-XII intact, normal gait, reflexes normal - Psychiatric Psychiatric exam: Present: normal mood, suicidal ideation. Absent: homicidal ideation - Skin Skin exam: Present: warm, intact, normal color ED Disposition Clinical Impression: No abnormality detected on mental health assessment Disposition: HOME / SELF CARE / HOMELESS Condition: Stable Additional Instructions: OUTPATIENT MENTAL HEALTH RESOURCES [facility], [facility] Kelly Mooney MD: [address] [place] [address], [address] [place] [address] [place] [address] [facility]: [facility] [address] [place] [address] [place] [address] [phone] [facility]: [facility]: [address] [facility] [address] [place] [address] [place] [address] [facility] [address] [facility]: Triston Ordaz MD: [address] [facility] [address] [place], [place] [address] [facility]: [address] [place] [address] [phone] [place] CRISIS AND ACCESS LINE: <ROBERT HARRIS - Last Filed: 02/18/22 12:07> ED Review of Systems ROS: Stated complaint: SUICIDAL IDEATIONS Other details as noted in HPI ED Course Vital Signs 02/17/22 02/17/22 02/17/22 03:31 03:36 05:32 Temperature 98.1 F 98.2 F Pulse Rate 86 87 Respiratory 18 18 Rate Blood Pressure Blood Pressure 129/89 [Left] Blood Pressure 153/100 [Right] O2 Sat by Pulse 96 100 97 Oximetry 02/17/22 02/17/22 14:04 20:03 Temperature 98.0 F 98.0 F Pulse Rate 58 L 76 Respiratory 16 16 Rate Blood Pressure 104/68 Blood Pressure 104/58 [Left] Blood Pressure [Right] O2 Sat by Pulse 98 98 Oximetry - Reevaluation(s) Reevaluation #1: 02/18/22 12:05 I HAVE READ THE MENTAL HEALTH NOTE AND RECOMMEND NO INPATIENT PATIENT DENIES SI/HI. I seen the patient myself and patient is pleasant who is AOx4. Patient also denies suicidal homicidal ideation patient denies any hallucination. Awake and alert patient discharge patient was informed to make a follow-up appoint with her primary care provider and also see psychiatric within 3 days. Patient was informed to return to the ER immediately if there are any suicidal ideation homicidal ideation or any current hallucination patient agrees. ED Medical Decision Making - Lab Data Result diagrams: 02/17/22 04:05 02/17/22 04:05 Critical care attestation.: If time is entered above; I have spent that time in minutes in the direct care of this critically ill patient, excluding procedure time. ED Disposition Is pt being admited?: No Does the pt Need Aspirin: No Time of Disposition: 12:07
[2022-02-17 04:19] LABS: Basophils # (Auto) 0.1 K/mm3 (0.0-0.1); Basophils % (Auto) 0.8 % (0.0-1.8); Eosinophils # (Auto) 0.4 K/mm3 (0.0-0.4); Eosinophils % (Auto) 4.4 % (0.0-4.3); Hematocrit 36.7 % (30.3-42.9); Hemoglobin 12.1 gm/dl (10.1-14.3); Lymphocytes # (Auto) 2.5 K/mm3 (1.2-5.4); Lymphocytes % (Auto) 28.9 % (13.4-35.0); Mean Corpuscular HGB Conc 33 % (30-34); Mean Corpuscular Volume 85 fl (79-97); Monocytes # (Auto) 0.6 K/mm3 (0.0-0.8); Monocytes % (Auto) 6.6 % (0.0-7.3); Platelet Count 241 K/mm3 (140-440); Red Cell Distribution Width 15.2 % (13.2-15.2)
[2022-02-17 04:35] LABS: BUN/Creatinine Ratio 10; Blood Urea Nitrogen 8 mg/dL (7-17); Calcium 9.2 mg/dL (8.4-10.2); Hemolysis Index 17
--- NOTE | 2022-02-17 12:26 | Consultation ---
History of Present Illness - Reason for Consult Consult date: 02/17/22 Reason for consult: suicidal ideation - History of Present Psychiatric Illness The patient is a 31 year old female with history of schizophrenia, and bipolar who presents to the ED with suicidal ideation. The patient was seen this morning. She is calm, alert and oriented x2. The patient reports having suicidal ideation x2 weeks " I feel like killing myself." The patient is unable to state stressor. She endorses suicidal ideation with no plan; she denies hallucinations. PAST PSYCHIATRIC HISTORY Diagnoses: Schizophrenia, Bipolar Suicide attempts or Self-harm behavior: Yes Prior psychiatric hospitalizations: Yes Substance Abuse history: Denies Previous psychiatric medications tried: Unable to recall Outpatient treatment: Unknown PAST MEDICAL HISTORY: None reported Family Psychiatric History: None reported or documented SOCIAL HISTORY Marital Status: Single Living Arrangements: Lives in a fci Employment Status:Unemployed Access to guns/weapons: Denies Education: 10th grade History of Abuse: Denies Legal History: Incarceration REVIEW OF SYSTEMS Constitutional: Negative for weight loss ENT: Negative for stridor Respiratory: Negative for cough or hemoptysis All other systems reviewed and are negative MENTAL STATUS EXAMINATION General Appearance and Behavior: Age appropriate, good hygiene, wearing appropriate clothes, good eye contact, anxious, cooperative Cooperation: Participating/engaged Psychomotor Behavior: Psychomotor normal Mood:Depressed Affect and affective range: congruent with stated mood Thought Process: Goal directed Thought Content: Suicidal Speech: Normal tone and pace Suicidal Ideation:Yes Homicidal Ideation: Denies Hallucinations: Denies Delusions: None Impulse Control: Limited Insight and Judgment: Limited insight and judgment Memory: Limited Attention: attentive Orientation: Alert, oriented Diagnoses: Bipolar Disorder Treatment Plan 1013 Continue home meds Seroquel 50mg po QHS Depakote 125mg po BID PSYCHOTHERAPY: Supportive psychotherapy provided MEDICAL: Per primary team DELIRIUM PRECAUTIONS: Please re-orient patient frequently, keep lights on during the day, and minimize benzodiazepines and opiates as these medications could wor sen patient's confusion. MAIL ROOM CLERK: Per medical team DISPOSITION: Recommend acute psychiatric inpatient treatment. Will follow. Thank you for the consult. Case staffed with Dr. Clark Medications and Allergies Medications and Allergies Allergies Allergy/AdvReac Type Severity Reaction Status Date / Time abilify Allergy Vomiting Uncoded 01/06/22 11:11 Home Medications Medication Instructions Recorded Confirmed Last Taken Type Cetirizine HCl/Pseudoephedrine 1 each PO BID #30 tab 01/06/22 Unknown Rx [Zyrtec-D Tablet] QUEtiapine [SEROquel] 100 mg PO QHS 30 Days #30 tab 02/07/22 Unknown Rx Nitrofurantoin [place]/M-Cryst 100 mg PO Q12HR #10 capsule 02/09/22 Unknown Rx [Macrobid CAP] Mental Status Exam - Vital signs Last Vital Signs Temp 98.2 F 02/17/22 05:32 Pulse 87 02/17/22 05:32 Resp 18 02/17/22 05:32 BP 129/89 02/17/22 05:32 Pulse Ox 97 02/17/22 05:32 Results Result Diagrams: 02/17/22 04:05 02/17/22 04:05 Abnormal lab results 02/17/22 02/17/22 02/17/22 Range/Units 04:05 04:05 04:05 Eos % (Auto) 4.4 H (0.0-4.3) % Glucose 109 H (65-100) mg/dL Salicylates < 0.3 L (2.8-20.0) mg/dL Acetaminophen (10.0-30.0) ug/mL 02/17/22 Range/Units 04:05 Eos % (Auto) (0.0-4.3) % Glucose (65-100) mg/dL Salicylates (2.8-20.0) mg/dL Acetaminophen 5.0 L (10.0-30.0) ug/mL All other labs normal.
[2022-02-17] MEDS: DIVALPROEX DR 125 MG TAB PO SCH ×2 (14:41→22:15)
[2022-02-17] MEDS ORDERED: QUEtiapine 25 MG TAB PO SCH (22:00)
[2022-02-18] MEDS: DIVALPROEX DR 125 MG TAB PO SCH (10:31)
--- NOTE | 2022-02-18 11:01 | Progress Note ---
Subjective - Reason for Consult Consult date: 02/18/22 Reason for consult: SI - Chief Complaint Chief complaint: The patient was seen this morning. She reports doing well. She reports sleep and appetite as good. She denies suicidal/homicidal ideation and denies hallucinations. REVIEW OF SYSTEMS Constitutional: Negative for weight loss ENT: Negative for stridor Respiratory: Negative for cough or hemoptysis All other systems reviewed and are negative MENTAL STATUS EXAMINATION General Appearance and Behavior: Age appropriate, good hygiene, wearing appropriate clothes, good eye contact, anxious, cooperative Cooperation: Participating/engaged Psychomotor Behavior: Psychomotor normal Mood:Depressed Affect and affective range: congruent with stated mood Thought Process: Goal directed Thought Content: Reality oriented Speech: Normal tone and pace Suicidal Ideation:Denies Homicidal Ideation: Denies Hallucinations: Denies Delusions: None Impulse Control: Limited Insight and Judgment: Limited insight and judgment Memory: Limited Attention: attentive Orientation: Alert, oriented Diagnoses: Bipolar Disorder Treatment Plan Dc 1013 Continue home meds Continue Seroquel 50mg po QHS Continue Depakote 125mg po BID PSYCHOTHERAPY: Supportive psychotherapy provided MEDICAL: Per primary team DELIRIUM PRECAUTIONS: Please re-orient patient frequently, keep lights on during the day, and minimize benzodiazepines and opiates as these medications could worsen patient's confusion. 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 Stockroom Attendant will provide patient with psych out-patient resources. Will sign off. Thank you for the consult. Case staffed with Dr. Clark Medications and Allergies Mental Status Exam - Vital signs Last Vital Signs Temp 98.0 F 02/17/22 20:03 Pulse 76 02/17/22 20:03 Resp 16 02/17/22 20:03 BP 104/58 02/17/22 20:03 Pulse Ox 98 02/17/22 20:03
[2022-02-18 17:55] VITALS: BP 135/84
== END 2022-02-18 17:54 | disposition home or self-care (01) ==
LOC: ED 03:26
DX: Z13.30 Encounter for screening examination for mental health and behavioral disorders, unspecified (principal); Z79.899 Other long term (current) drug therapy; Z91.09 Other allergy status, other than to drugs and biological substances; F17.200 Nicotine dependence, unspecified, uncomplicated; Z20.822 Contact with and (suspected) exposure to COVID-19
CPT/HCPCS: 36415; 80048; 84703; 85025; 99284; U0003; 80320; G0480

== ENCOUNTER 2022-02-26 03:50 | Emergency (ER) | payer MEDICAID ==
[2022-02-26] MEDS ORDERED: LORazepam 2 MG/ML VIAL IM PRN (04:39)
--- NOTE | 2022-02-26 04:42 | Event Note ---
Date: 02/26/22 The patient was evaluated in the emergency department for symptoms described in the history of present illness. He/she was evaluated in the context of the global COVID-19 pandemic, which necessitated consideration that the patient might be at risk for infection with the virus that causes COVID-19. Institutional protocols and algorithms that pertain to the evaluation of patients at risk for COVID-19 are in a state of rapid change based on information released by regulatory bodies including the CDC and federal and state organizations. These policies and algorithms were followed during the patient's care in the emergency department. Please note that these policies, procedures and recommendations changed on a rapid basis. Verbal report received from emergency medical services. EMS documentation not available at time of chart dictation Medical screening examination note This is a 31-year-old female with a known history of psychiatric disease, who currently lives in a chcf, who was brought to the hospital by emergency medical services. The patient complains of painless suicidality, and depression. The patient cites a number of factors, including not liking the ch[facility] where she is at. She reports that she cannot go home to friends or family, "because of drug problems in the past." The patient is not experiencing hallucinations at this time, and she denies intentional overdose. The patient reports that she feels like if she were placed into a psychiatric hospital, she would feel better. Of note, this patient has presented multiple times to this department in the past for similar symptoms. I highly suspect that this patient is malingering. Placing this patient on a 1013 and involuntarily confining her, as well as transferring her to a psychiatric hospital will serve to reinforce maladaptive behaviors, such as seeking evaluation in the emergency room, and articulating symptoms for the purposes of psychiatric placement. The patient will not learn coping mechanisms to deal with her chcf, depression, or stressful life situations. The patient is cooperative at this time, a mental health consultation is requested, typical laboratory studies have been ordered for psychiatric clearance, however, it is my opinion that the patient will be best served with outpatient resources. Ultimately, defer to psychiatric team's recommendations after medical clearance. Detailed history and physical to be performed by oncoming ER provider. Vital Signs 02/26/22 04:10 Temperature 97.8 F Pulse Rate 86 Respiratory 18 Rate Blood Pressure 122/78 O2 Sat by Pulse 100 Oximetry
[2022-02-26 05:22] LABS: Hematocrit 37.5 % (30.3-42.9); Hemoglobin 12.2 gm/dl (10.1-14.3); Mean Corpuscular HGB Conc 33 % (30-34); Mean Corpuscular Volume 86 fl (79-97); Platelet Count 268 K/mm3 (140-440); Red Blood Count 4.35 M/mm3 (3.65-5.03)
[2022-02-26 05:37] LABS: Blood Urea Nitrogen 8 mg/dL (7-17); Calcium 9.2 mg/dL (8.4-10.2); Hemolysis Index 6
[2022-02-26 05:39] LABS: BUN/Creatinine Ratio 11
--- NOTE | 2022-02-26 08:26 | Emergency Department Report ---
ED General Adult HPI - General Chief complaint: Psych Stated complaint: SUICIDAL THOUGHTS/MH EVAL Time Seen by Provider: 02/26/22 07:52 Source: patient Mode of arrival: Stretcher Limitations: No Limitations - History of Present Illness Initial comments: The patient presents to the emergency department the chief complaint of suicidal thoughts and depression. Patient states this is due to to her living arrangements at her shelter. Patient denies any hallucinations or homicidal thoughts. Patient does not express a plan to me. Patient denies chest pain, shortness breath, or headache. -: unknown Severity scale (0 -10): 0 Consistency: constant Improves with: none Worsens with: none Associated Symptoms: denies other symptoms Treatments Prior to Arrival: none - Related Data Previous Rx's Medication Instructions Recorded Last Taken Type Cetirizine HCl/Pseudoephedrine 1 each PO BID #30 tab 01/06/22 Unknown Rx [Zyrtec-D Tablet] QUEtiapine [SEROquel] 100 mg PO QHS 30 Days #30 tab 02/07/22 Unknown Rx Nitrofurantoin [place]/M-Cryst 100 mg PO Q12HR #10 capsule 02/09/22 Unknown Rx [Macrobid CAP] Allergies Allergy/AdvReac Type Severity Reaction Status Date / Time abilify Allergy Vomiting Uncoded 01/06/22 11:11 ED Review of Systems ROS: Stated complaint: SUICIDAL THOUGHTS/MH EVAL Other details as noted in HPI Constitutional: denies: chills, fever Eyes: denies: eye pain, eye discharge, vision change ENT: denies: ear pain, throat pain Respiratory: denies: cough, shortness of breath, wheezing Cardiovascular: denies: chest pain, palpitations Endocrine: no symptoms reported Gastrointestinal: denies: abdominal pain, nausea, diarrhea Genitourinary: denies: urgency, dysuria, discharge Musculoskeletal: denies: back pain, joint swelling, arthralgia Skin: denies: rash, lesions Neurological: denies: headache, weakness, paresthesias Psychiatric: suicidal thoughts. denies: anxiety, depression Hematological/Lymphatic: denies: easy bleeding, easy bruising ED Past Medical Hx - Past Medical History Previous Medical History?: Yes Additional medical history: schizophrenia, anxiety, depression, bipolar - Surgical History Past Surgical History?: No - Social History Smoking Status: Never Smoker Substance Use Type: None - Medications Home Medications: Home Medications Medication Instructions Recorded Confirmed Last Taken Type Cetirizine HCl/Pseudoephedrine 1 each PO BID #30 tab 01/06/22 Unknown Rx [Zyrtec-D Tablet] QUEtiapine [SEROquel] 100 mg PO QHS 30 Days #30 tab 02/07/22 Unknown Rx Nitrofurantoin [place]/M-Cryst 100 mg PO Q12HR #10 capsule 02/09/22 Unknown Rx [Macrobid CAP] ED Physical Exam - General Limitations: No Limitations General appearance: alert, in no apparent distress - Head Head exam: Present: atraumatic, normocephalic - Eye Eye exam: Present: normal appearance, PERRL, EOMI - ENT ENT exam: Present: mucous membranes moist - Neck Neck exam: Present: normal inspection - Respiratory Respiratory exam: Present: normal lung sounds bilaterally. Absent: respiratory distress - Cardiovascular Cardiovascular Exam: Present: regular rate, normal rhythm. Absent: systolic murmur, diastolic murmur, rubs, gallop - GI/Abdominal GI/Abdominal exam: Present: soft, normal bowel sounds. Absent: distended, tenderness - Extremities Exam Extremities exam: Present: normal inspection - Back Exam Back exam: Present: normal inspection - Neurological Exam Neurological exam: Present: alert, oriented X3, CN II-XII intact. Absent: motor sensory deficit - Psychiatric Psychiatric exam: Present: depressed, suicidal ideation. Absent: homicidal ideation - Skin Skin exam: Present: warm, dry, intact, normal color. Absent: rash ED Course Vital Signs 02/26/22 02/26/22 02/26/22 04:00 04:10 10:09 Temperature 97.8 F 97.9 F Pulse Rate 86 77 Respiratory 18 16 Rate Blood Pressure 122/78 Blood Pressure 109/55 [Right] O2 Sat by Pulse 100 100 97 Oximetry ED Medical Decision Making - Lab Data Result diagrams: 02/26/22 05:03 02/26/22 05:03 Lab Results 02/26/22 02/26/22 02/26/22 Range/Units 05:03 05:03 05:03 WBC (4.5-11.0) K/mm3 RBC (3.65-5.03) M/mm3 Hgb (10.1-14.3) gm/dl Hct (30.3-42.9) % MCV (79-97) fl MCH (28-32) pg MCHC (30-34) % RDW (13.2-15.2) % Plt Count (140-440) K/mm3 Sodium 137 (137-145) mmol/L Potassium 3.9 (3.6-5.0) mmol/L Chloride 104.2 (98-107) mmol/L Carbon Dioxide 22 (22-30) mmol/L Anion Gap 15 mmol/L BUN 8 (7-17) mg/dL Creatinine 0.7 (0.6-1.2) mg/dL Estimated GFR > 60 ml/min BUN/Creatinine Ratio 11 % Glucose 101 H (65-100) mg/dL Calcium 9.2 (8.4-10.2) mg/dL HCG, Qual (Negative) Salicylates < 0.3 L (2.8-20.0) mg/dL Acetaminophen 5.0 L (10.0-30.0) ug/mL Plasma/Serum Alcohol (0-0.07) % 02/26/22 02/26/22 02/26/22 Range/Units 05:03 05:03 05:03 WBC 8.3 (4.5-11.0) K/mm3 RBC 4.35 (3.65-5.03) M/mm3 Hgb 12.2 (10.1-14.3) gm/dl Hct 37.5 (30.3-42.9) % MCV 86 (79-97) fl MCH 28 (28-32) pg MCHC 33 (30-34) % RDW 15.0 (13.2-15.2) % Plt Count 268 (140-440) K/mm3 Sodium (137-145) mmol/L Potassium (3.6-5.0) mmol/L Chloride (98-107) mmol/L Carbon Dioxide (22-30) mmol/L Anion Gap mmol/L BUN (7-17) mg/dL Creatinine (0.6-1.2) mg/dL Estimated GFR ml/min BUN/Creatinine Ratio % Glucose (65-100) mg/dL Calcium (8.4-10.2) mg/dL HCG, Qual Negative (Negative) Salicylates (2.8-20.0) mg/dL Acetaminophen (10.0-30.0) ug/mL Plasma/Serum Alcohol < 0.01 (0-0.07) % - Medical Decision Making 1013 applied Awaiting medical clearance and psychiatric evaluation Patient medically clear Patient seen by psychiatry and deemed not an inpatient candidate Upon discussing results with the patient she states that she wants to kill her self and if she goes home that could be the result Have requested reevaluation of the patient Critical care attestation.: If time is entered above; I have spent that time in minutes in the direct care of this critically ill patient, excluding procedure time. ED Disposition Clinical Impression: Suicidal ideation Disposition: [address] [place] [address] Is pt being admited?: No Does the pt Need Aspirin: No Condition: Stable Referrals: PRIMARY CARE, [Primary Care Provider] - 3-5 Days
--- NOTE | 2022-02-26 11:29 | Progress Note ---
Subjective - Reason for Consult Consult date: 02/26/22 Reason for consult: SI - Chief Complaint Chief complaint: HPI: The patient presents to the emergency department the chief complaint of suicidal thoughts and depression. Patient states this is due to to her living arrangements at her skilled nursing. Patient denies any hallucinations or homicidal thoughts. Patient does not express a plan to me. Patient denies chest pain, shortness breath, or headache. The patient was seen today. She is irritable and reluctant to cooperate. Her symptoms are vague. The patient says she feels horrible and doesn't want to be here. I ask her whey did she come to the hospital. She yells "I don't want to be back there or here." She says she doesn't like where she is living. The patient says she lives in a skilled nursing. She says being there is making her feel suicidal . The patient says she has a history of bipolar, schizophrenia and borderline personality disorder. She states she could not recall her meds. When asking about hallucinations, the patient shouts "yes." I ask her what were the hallucinations, she says "yesterday just funny things." Will not recommend inpatient treatment at this time. The patient can be managed on an outpatient basis and needs to follow up with her outpatient psychiatrist to discuss plan. PAST PSYCHIATRIC HISTORY Diagnoses: Schizophrenia, Bipolar Suicide attempts or Self-harm behavior: Yes Prior psychiatric hospitalizations: Yes Substance Abuse history: Denies Previous psychiatric medications tried: Unable to recall Outpatient treatment: Unknown PAST MEDICAL HISTORY: None reported Family Psychiatric History: None reported or documented SOCIAL HISTORY Marital Status: Single Living Arrangements: Lives in a skilled nursing Employment Status: Unemployed Access to guns/weapons: Denies Education: 10th grade History of Abuse: Denies Legal History: Incarceration REVIEW OF SYSTEMS Constitutional: Negative for weight loss ENT: Negative for stridor Respiratory: Negative for cough or hemoptysis All other systems reviewed and are negative MENTAL STATUS EXAMINATION General Appearance and Behavior: Age appropriate, good hygiene, wearing appropriate clothes, good eye contact, anxious, cooperative Cooperation: Participating/engaged Psychomotor Behavior: Psychomotor normal Mood: Depressed Affect and affective range: congruent with stated mood Thought Process: Goal directed Thought Content: None Speech: Normal tone and pace Suicidal Ideation: yes, due to not liking skilled nursing Homicidal Ideation: Denies Hallucinations: denies at present, but yesterday Delusions: None elicited Impulse Control: Limited Insight and Judgment: Limited insight and judgment Memory: Limited Attention: attentive Orientation: Alert, oriented Diagnoses: Bipolar Disorder Treatment Plan Continue previously prescribed medications PSYCHOTHERAPY: Supportive psychotherapy provided MEDICAL: Per primary team DELIRIUM PRECAUTIONS: Please re-orient patient frequently, keep lights on during the day, and minimize benzodiazepines and opiates as these medications could worsen patient's confusion. 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 The patient understands to seek immediate assistance if any fear of endangerment arise. Will sign off. Thank you for this consult Case staffed with Dr. Clark Mental Status Exam - Vital signs Last Vital Signs Temp 97.9 F 02/26/22 10:09 Pulse 77 02/26/22 10:09 Resp 16 02/26/22 10:09 BP 109/55 02/26/22 10:09 Pulse Ox 97 02/26/22 10:09
--- NOTE | 2022-02-27 12:50 | Progress Note ---
Subjective - Reason for Consult Consult date: 02/27/22 Reason for consult: SI - Chief Complaint Chief complaint: The patient was seen today. She was evaluated yesterday and cleared by psych. The patient then complained of suicide when they were about to discharge her so the ER physician kept the patient. Upon evaluating the patient today, she again says she doesn't like her assisted and this is what makes her suicidal. She says "I don't like it there, this is why I don't want to live." I asked the patient does she need another assisted. She says yes initially, then says "no, I don't want another assisted, I can get myself a hotel." She denies hallucinations of any kind. The source of this patient feeling this way is strictly due to her not wanting to be at her assisted. She has been seen in the ER three times this month with this complaint. I will consult case management to speak with this patient to see if they can help her find alternative living arrangements. PAST PSYCHIATRIC HISTORY Diagnoses: Schizophrenia, Bipolar Suicide attempts or Self-harm behavior: Yes Prior psychiatric hospitalizations: Yes Substance Abuse history: Denies Previous psychiatric medications tried: Unable to recall Outpatient treatment: Unknown PAST MEDICAL HISTORY: None reported Family Psychiatric History: None reported or documented SOCIAL HISTORY Marital Status: Single Living Arrangements: Lives in a assisted Employment Status: Unemployed Access to guns/weapons: Denies Education: 10th grade History of Abuse: Denies Legal History: Incarceration REVIEW OF SYSTEMS Constitutional: Negative for weight loss ENT: Negative for stridor Respiratory: Negative for cough or hemoptysis All other systems reviewed and are negative MENTAL STATUS EXAMINATION General Appearance and Behavior: Age appropriate, good hygiene, wearing appropriate clothes, good eye contact, anxious, cooperative Cooperation: Participating/engaged Psychomotor Behavior: Psychomotor normal Mood: Depressed Affect and affective range: congruent with stated mood Thought Process: Goal directed Thought Content: None Speech: Normal tone and pace Suicidal Ideation: yes, due to not liking assisted Homicidal Ideation: Denies Hallucinations: denies at present, but yesterday Delusions: None elicited Impulse Control: Limited Insight and Judgment: Limited insight and judgment Memory: Limited Attention: attentive Orientation: Alert, oriented Diagnoses: Bipolar Disorder Treatment Plan Case management consulted to assist with alternative living arrangements. Continue previously prescribed medications PSYCHOTHERAPY: Supportive psychotherapy provided MEDICAL: Per primary team DELIRIUM PRECAUTIONS: Please re-orient patient frequently, keep lights on during the day, and minimize benzodiazepines and opiates as these medications could worsen patient's confusion. 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 The patient understands to seek immediate assistance if any fear of endangerment arise. Will sign off. Thank you for this consult Case staffed with Dr. Clark Mental Status Exam - Vital signs Last Vital Signs Temp 98.5 F 02/27/22 10:37 Pulse 87 02/27/22 10:37 Resp 18 02/27/22 10:37 BP 98/63 02/27/22 10:37 Pulse Ox 99 02/27/22 10:37
--- NOTE | 2022-02-27 15:22 | Event Note ---
Date: 02/27/22 Patient reevaluated today and does not appear to be suicidal. States her feelings of suicidal ideation are due to her not wanting to return to her current living facility. call worker person consulted to assist with alternative living arrangements. Inpatient treatment not recommended. Patient stable for discharge.
[2022-02-28 16:20] VITALS: BP 120/76
== END 2022-02-28 17:21 | disposition home or self-care (01) ==
LOC: ED 03:50
DX: R45.851 Suicidal ideations (principal); F41.9 Anxiety disorder, unspecified; Z20.822 Contact with and (suspected) exposure to COVID-19; F20.9 Schizophrenia, unspecified; F31.9 Bipolar disorder, unspecified; Z79.899 Other long term (current) drug therapy
CPT/HCPCS: 36415; 80048; 84703; 85027; 99284; U0003; 80320; G0480

== ENCOUNTER 2022-03-21 22:48 | Emergency (ER) | payer MEDICAID ==
--- NOTE | 2022-03-21 23:52 | Emergency Department Report ---
ED Psych HPI - General Chief Complaint: Psych Stated Complaint: SUICIDAL THOUGHTS/MH EVAL Time Seen by Provider: 03/21/22 23:44 Source: patient, EMS, old records reviewed Mode of arrival: Ambulatory Limitations: No Limitations - History of Present Illness Initial Comments: 31-year female the past medical history schizophrenia presents to the hospital complaining of psychosis and suicidal ideation without plan. Patient states has been feeling she want to for "a few months". Patient was discharged from [facility] 3 days ago with the same complaint. Has been noncompliant with her medications for the past 2 days because she did not feel like taking them. Patient is apparently homeless. History of suicide attempt via overdose and cutting her wrist in the past with current plan to cut her wrists. No physical complaints reported - Related Data Previous Rx's Medication Instructions Recorded Last Taken Type Cetirizine HCl/Pseudoephedrine 1 each PO BID #30 tab 01/06/22 Unknown Rx [Zyrtec-D Tablet] QUEtiapine [SEROquel] 100 mg PO QHS 30 Days #30 tab 02/07/22 Unknown Rx Nitrofurantoin [place]/M-Cryst 100 mg PO Q12HR #10 capsule 02/09/22 Unknown Rx [Macrobid CAP] Allergies Allergy/AdvReac Type Severity Reaction Status Date / Time abilify Allergy Vomiting Uncoded 03/22/22 02:26 ED Review of Systems ROS: Stated complaint: SUICIDAL THOUGHTS/MH EVAL Other details as noted in HPI Comment: All other systems reviewed and negative ED Past Medical Hx - Past Medical History Additional medical history: schizophrenia, anxiety, depression, bipolar - Social History Smoking Status: Never Smoker Substance Use Type: None - Medications Home Medications: Home Medications Medication Instructions Recorded Confirmed Last Taken Type Cetirizine HCl/Pseudoephedrine 1 each PO BID #30 tab 01/06/22 Unknown Rx [Zyrtec-D Tablet] QUEtiapine [SEROquel] 100 mg PO QHS 30 Days #30 tab 02/07/22 Unknown Rx Nitrofurantoin [place]/M-Cryst 100 mg PO Q12HR #10 capsule 02/09/22 Unknown Rx [Macrobid CAP] ED Physical Exam - General Limitations: No Limitations - Other Other exam information: General: No acute distress Head: Atraumatic Eyes: normal appearance ENT: Moist mucous membranes Neck: Normal appearance, no midline tenderness Chest: Clear to auscultation bilaterally CV: Tachycardic regular rhythm Abdomen: Soft, normal bowel sounds, nontender, nondistended, no rebound or guarding Back: Normal inspection Extremity: Normal inspection, full range of motion Neuro: Alert O x 3, no facial asymmetry, speech clear, no gross motor sensory deficit Psych: Appropriate behavior Skin: No rash ED Course Vital Signs 03/21/22 03/22/22 03/22/22 23:04 00:48 01:01 Temperature 98.3 F Pulse Rate 112 H 88 Respiratory 16 16 Rate Blood Pressure 132/82 123/78 [Right] O2 Sat by Pulse 98 99 99 Oximetry - Reevaluation(s) Reevaluation #1: 03/21/22 23:55 one dose of seroquel ordered since it has been prescribed in the past as per MAR Reevaluation #2: 03/22/22 02:34 Urine collection pending ED Medical Decision Making - Lab Data Result diagrams: 03/21/22 23:53 03/21/22 23:53 Lab Results 03/21/22 03/21/22 03/21/22 Range/Units 23:53 23:53 23:53 WBC 9.0 (4.5-11.0) K/mm3 RBC 4.46 (3.65-5.03) M/mm3 Hgb 12.7 (10.1-14.3) gm/dl Hct 37.8 (30.3-42.9) % MCV 85 (79-97) fl MCH 28 (28-32) pg MCHC 34 (30-34) % RDW 15.5 H (13.2-15.2) % Plt Count 250 (140-440) K/mm3 Lymph % (Auto) 31.0 (13.4-35.0) % [place] % (Auto) 7.5 H (0.0-7.3) % Eos % (Auto) 3.6 (0.0-4.3) % Baso % (Auto) 0.9 (0.0-1.8) % Lymph # (Auto) 2.8 (1.2-5.4) K/mm3 [place] # (Auto) 0.7 (0.0-0.8) K/mm3 Eos # (Auto) 0.3 (0.0-0.4) K/mm3 Baso # (Auto) 0.1 (0.0-0.1) K/mm3 Seg Neutrophils % 57.0 (40.0-70.0) % Seg Neutrophils # 5.1 (1.8-7.7) K/mm3 Sodium 141 (137-145) mmol/L Potassium 3.3 L (3.6-5.0) mmol/L Chloride 105.6 (98-107) mmol/L Carbon Dioxide 21 L (22-30) mmol/L Anion Gap 18 mmol/L BUN 8 (7-17) mg/dL Creatinine 0.8 (0.6-1.2) mg/dL Estimated GFR > 60 ml/min BUN/Creatinine Ratio 10 % Glucose 127 H (65-100) mg/dL Calcium 9.4 (8.4-10.2) mg/dL HCG, Quant (0-4) mIU/mL Salicylates < 0.3 L (2.8-20.0) mg/dL Acetaminophen (10.0-30.0) ug/mL Plasma/Serum Alcohol (0-0.07) % 03/21/22 03/21/22 03/21/22 Range/Units 23:53 23:53 23:53 WBC (4.5-11.0) K/mm3 RBC (3.65-5.03) M/mm3 Hgb (10.1-14.3) gm/dl Hct (30.3-42.9) % MCV (79-97) fl MCH (28-32) pg MCHC (30-34) % RDW (13.2-15.2) % Plt Count (140-440) K/mm3 Lymph % (Auto) (13.4-35.0) % [place] % (Auto) (0.0-7.3) % Eos % (Auto) (0.0-4.3) % Baso % (Auto) (0.0-1.8) % Lymph # (Auto) (1.2-5.4) K/mm3 [place] # (Auto) (0.0-0.8) K/mm3 Eos # (Auto) (0.0-0.4) K/mm3 Baso # (Auto) (0.0-0.1) K/mm3 Seg Neutrophils % (40.0-70.0) % Seg Neutrophils # (1.8-7.7) K/mm3 Sodium (137-145) mmol/L Potassium (3.6-5.0) mmol/L Chloride (98-107) mmol/L Carbon Dioxide (22-30) mmol/L Anion Gap mmol/L BUN (7-17) mg/dL Creatinine (0.6-1.2) mg/dL Estimated GFR ml/min BUN/Creatinine Ratio % Glucose (65-100) mg/dL Calcium (8.4-10.2) mg/dL HCG, Quant < 2 (0-4) mIU/mL Salicylates (2.8-20.0) mg/dL Acetaminophen 5.0 L (10.0-30.0) ug/mL Plasma/Serum Alcohol < 0.01 (0-0.07) % - Medical Decision Making 31-year-old female with psychosis and schizophrenia with ongoing suicidal idea tion with previous attempt presents to the hospital for same. Recent psychiatric treatment at [facility] was discharged 3 days ago and admitted noncompliance to medication despite medication access. Patient is also homeless. Possible secondary gain suspected. consult pending po potassium ordered for mild hypokalemia Critical Care Time: No Critical care attestation.: If time is entered above; I have spent that time in minutes in the direct care of this critically ill patient, excluding procedure time. ED Disposition Clinical Impression: Suicidal ideation, Schizophrenia, Medical clearance for psychiatric admission Disposition: [address] [place] [address] HOSPITAL Is pt being admited?: No Condition: Stable
[2022-03-21] MEDS ORDERED: QUEtiapine 100 MG TAB PO ONE (23:54)
[2022-03-22 00:10] LABS: Basophils # (Auto) 0.1 K/mm3 (0.0-0.1); Basophils % (Auto) 0.9 % (0.0-1.8); Eosinophils # (Auto) 0.3 K/mm3 (0.0-0.4); Eosinophils % (Auto) 3.6 % (0.0-4.3); Hematocrit 37.8 % (30.3-42.9); Hemoglobin 12.7 gm/dl (10.1-14.3); Lymphocytes # (Auto) 2.8 K/mm3 (1.2-5.4); Mean Corpuscular HGB Conc 34 % (30-34); Mean Corpuscular Volume 85 fl (79-97); Monocytes # (Auto) 0.7 K/mm3 (0.0-0.8); Monocytes % (Auto) 7.5 % (0.0-7.3); Platelet Count 250 K/mm3 (140-440); Red Blood Count 4.46 M/mm3 (3.65-5.03); Red Cell Distribution Width 15.5 % (13.2-15.2)
[2022-03-22 00:21] LABS: BUN/Creatinine Ratio 10; Blood Urea Nitrogen 8 mg/dL (7-17); Calcium 9.4 mg/dL (8.4-10.2); Hemolysis Index 9
[2022-03-22] MEDS ORDERED: POTASSIUM CHLORIDE ER 20 MEQ TAB PO ONE (02:12)
--- NOTE | 2022-03-22 12:14 | Consultation ---
History of Present Illness - Reason for Consult Consult date: 03/22/22 Reason for consult: Mental health evaluation - History of Present Psychiatric Illness HPI: 11-year female the past medical history schizophrenia presents to the hospital complaining of psychosis and suicidal ideation without plan. Patient states has been feeling she want to for "a few months". Patient was discharged from [facility] 3 days ago with the same complaint. Has been noncompliant with her medications for the past 2 days because she did not feel like taking them. Patient is apparently homeless. History of suicide attempt via overdose and cutting her wrist in the past with current plan to cut her wrists. No physical complaints reported. The patient is a 31 year old female with history of Schizophrenia, Bipolar disorder who presents to the ED with suicidal ideation. The patient was seen this morning. She is calm, alert and oriented x3. The patient reports ongoing suicidal ideation " for a few months." The patient endorses suicidal ideation with a plan to cut her wrist. PAST PSYCHIATRIC HISTORY Diagnoses: Schizophrenia, Bipolar Suicide attempts or Self-harm behavior: Yes Prior psychiatric hospitalizations: Yes Substance Abuse history: Denies Previous psychiatric medications tried: Seroquel Outpatient treatment: Unknown PAST MEDICAL HISTORY: None reported Family Psychiatric History: None reported or documented SOCIAL HISTORY Marital Status: Single Living Arrangements: unknown Employment Status: Unemployed Access to guns/weapons: Denies Education: 10th grade History of Abuse: Denies Legal History: unknown REVIEW OF SYSTEMS Constitutional: Negative for weight loss ENT: Negative for stridor Respiratory: Negative for cough or hemoptysis All other systems reviewed and are negative MENTAL STATUS EXAMINATION General Appearance and Behavior: Age appropriate, good hygiene, wearing appropriate clothes, good eye contact, anxious, cooperative Cooperation: Participating/engaged Psychomotor Behavior: Psychomotor normal Mood: Depressed Affect and affective range: congruent with stated mood Thought Process: Goal directed Thought Content: suicidal Speech: Normal tone and pace Suicidal Ideation: yes Homicidal Ideation: Denies Hallucinations: Auditory Delusions: None elicited Impulse Control: Limited Insight and Judgment: Limited insight and poor judgment Memory: Limited Attention: attentive Orientation: Alert, oriented Diagnoses: Schizophrenia Treatment Plan Continue previously prescribed medications PSYCHOTHERAPY: Supportive psychotherapy provided MEDICAL: Per primary team DELIRIUM PRECAUTIONS: Please re-orient patient frequently, keep lights on during the day, and minimize benzodiazepines and opiates as these medications could worsen patient's confusion. CURING FINISHER: Per medical team DISPOSITION: Recommend acute inpatient psychiatric inpatient treatment. Will follow. Thank you for this consult Case staffed with Dr. Clark Medications and Allergies Allergies Allergy/AdvReac Type Severity Reaction Status Date / Time abilify Allergy Vomiting Uncoded 03/22/22 02:26 Home Medications Medication Instructions Recorded Confirmed Last Taken Type Cetirizine HCl/Pseudoephedrine 1 each PO BID #30 tab 01/06/22 Unknown Rx [Zyrtec-D Tablet] QUEtiapine [SEROquel] 100 mg PO QHS 30 Days #30 tab 02/07/22 Unknown Rx Nitrofurantoin [place]/M-Cryst 100 mg PO Q12HR #10 capsule 02/09/22 Unknown Rx [Macrobid CAP] Mental Status Exam - Vital signs Last Vital Signs Temp 97.8 F 03/22/22 09:43 Pulse 76 03/22/22 09:43 Resp 14 03/22/22 09:43 BP 104/66 03/22/22 09:43 Pulse Ox 100 03/22/22 09:43 Results Result Diagrams: 03/21/22 23:53 03/21/22 23:53 Abnormal lab results 03/21/22 03/21/22 03/21/22 Range/Units 23:53 23:53 23:53 RDW 15.5 H (13.2-15.2) % [place] % (Auto) 7.5 H (0.0-7.3) % Potassium 3.3 L (3.6-5.0) mmol/L Carbon Dioxide 21 L (22-30) mmol/L Glucose 127 H (65-100) mg/dL Salicylates < 0.3 L (2.8-20.0) mg/dL Acetaminophen (10.0-30.0) ug/mL 03/21/22 Range/Units 23:53 RDW (13.2-15.2) % [place] % (Auto) (0.0-7.3) % Potassium (3.6-5.0) mmol/L Carbon Dioxide (22-30) mmol/L Glucose (65-100) mg/dL Salicylates (2.8-20.0) mg/dL Acetaminophen 5.0 L (10.0-30.0) ug/mL All other labs normal.
--- NOTE | 2022-03-22 16:32 | Event Note ---
Date: 03/22/22 Patient evaluated by psychiatry who recommends acute inpatient treatment for patient's condition at this time. We will keep on 1013. Patient is currently stable.
[2022-03-22 18:34] LABS: Bilirubin,Urine NEG (Negative); Blood,Urine LG (Negative); Color,Urine Yellow (Yellow); Protein,Urine <15 mg/dL mg/dL (Negative); Urobilinogen,Urine < 2.0 mg/dL (<2.0)
[2022-03-22 18:38] LABS: RBC,Urine < 1.0 /HPF (0.0-6.0); WBC,Urine < 1.0 /HPF (0.0-6.0)
[2022-03-22 18:41] LABS: Amphetamine Screen,Urine Negative; Benzodiazepines Screen,Urine Negative; Cannabinoid Screen,Urine Negative; Cocaine Screen,Urine Negative; Methadone Screen,Urine Negative; Opiate Screen,Urine Negative
[2022-03-22 19:15] LABS: Bacteria,Urine 1+ /HPF (Negative); Mucus,Urine FEW /HPF
[2022-03-22] MEDS ORDERED: QUEtiapine 100 MG TAB PO SCH (22:00)
--- NOTE | 2022-03-23 10:10 | Progress Note ---
Subjective - Reason for Consult Consult date: 03/23/22 Reason for consult: mental health evaluation - Chief Complaint Chief complaint: The patient was seen this morning. She presents with flat affect. the patient continues to be depressed and endorses suicidal ideation with a plan to cut her wrist. The patient seems to be impulsive and has had prior suicidal attempt. REVIEW OF SYSTEMS Constitutional: Negative for weight loss ENT: Negative for stridor Respiratory: Negative for cough or hemoptysis All other systems reviewed and are negative MENTAL STATUS EXAMINATION General Appearance and Behavior: Age appropriate, good hygiene, wearing appropriate clothes, good eye contact, anxious, cooperative Cooperation: Participating/engaged Psychomotor Behavior: Psychomotor normal Mood: Depressed Affect and affective range: congruent with stated mood Thought Process: Goal directed Thought Content: suicidal Speech: Normal tone and pace Suicidal Ideation: yes Homicidal Ideation: Denies Hallucinations: Auditory Delusions: None elicited Impulse Control: Questionable Insight and Judgment: Limited insight and poor judgment Memory: Limited Attention: attentive Orientation: Alert, oriented Diagnoses: Schizophrenia Treatment Plan 1013 Start Prozac 20mg po daily Continue Seroquel 100mg po QHS Continue previously prescribed medications PSYCHOTHERAPY: Supportive psychotherapy provided MEDICAL: Per primary team DELIRIUM PRECAUTIONS: Please re-orient patient frequently, keep lights on during the day, and minimize benzodiazepines and opiates as these medications could worsen patient's confusion. SCREENING REPRESENTATIVE: Per medical team DISPOSITION: Recommend acute inpatient psychiatric inpatient treatment. Will follow. Thank you for this consult Case staffed with Dr. Clark Medications and Allergies Mental Status Exam - Vital signs Last Vital Signs Temp 98.6 F 03/23/22 08:21 Pulse 68 03/23/22 08:21 Resp 18 03/23/22 08:21 BP 100/57 03/23/22 08:21 Pulse Ox 100 03/23/22 08:21
[2022-03-23] MEDS: FLUoxetine 20 MG CAP PO SCH (12:39)
--- NOTE | 2022-03-23 13:20 | Event Note ---
Date: 03/23/22 Ms. Santiago seen this morning has no new complaint. She has history of schizophrenia and was seen by psychiatric this morning recommend continuing 1013 and to start Prozac and to continue Seroquel.
[2022-03-24] MEDS: FLUoxetine 20 MG CAP PO SCH (09:34)
--- NOTE | 2022-03-24 12:04 | Progress Note ---
Subjective - Reason for Consult Consult date: 03/24/22 Reason for consult: SI - Chief Complaint Chief complaint: The patient was seen today. She says she came to the hospital because she felt suicidal. The patient says "I don't feel like that anymore." She denies homicidal thoughts as well. The patient denies hallucinations of any kind. She says she's been sleeping well. She says "I sleep a lot, but I feel better." Will no longer recommend inpatient treatment for this patient. She can be managed on an outpatient basis. Will give the patient script for prozac for her to continue on an outpatient basis. REVIEW OF SYSTEMS Constitutional: Negative for weight loss ENT: Negative for stridor Respiratory: Negative for cough or hemoptysis All other systems reviewed and are negative MENTAL STATUS EXAMINATION General Appearance and Behavior: Age appropriate, good hygiene, wearing appropriate clothes, good eye contact, anxious, cooperative Cooperation: Participating/engaged Psychomotor Behavior: Psychomotor normal Mood: Depressed Affect and affective range: congruent with stated mood Thought Process: Goal directed Thought Content: None Speech: Normal tone and pace Suicidal Ideation: yes, due to not liking fpc Homicidal Ideation: Denies Hallucinations: denies at present, but yesterday Delusions: None elicited Impulse Control: Limited Insight and Judgment: Limited insight and judgment Memory: Limited Attention: attentive Orientation: Alert, oriented Diagnoses: Bipolar Disorder Treatment Plan d/c 1013 Prozac 20mg po daily Continue previously prescribed medications PSYCHOTHERAPY: Supportive psychotherapy provided MEDICAL: Per primary team DELIRIUM PRECAUTIONS: Please re-orient patient frequently, keep lights on during the day, and minimize benzodiazepines and opiates as these medications could worsen patient's confusion. FULL DECATOR OPERATOR: Per medical team DISPOSITION: Do not recommend acute inpatient psychiatric inpatient treatment. The patient understands to seek immediate assistance if any fear of endangerment arise. Election Clerk to complete safety plan and give all necessary resources Will sign off. Thank you for this consult Case staffed with Dr. Clark Mental Status Exam - Vital signs Last Vital Signs Temp 98.7 F 03/24/22 08:48 Pulse 57 L 03/24/22 08:48 Resp 14 03/24/22 08:48 BP 106/65 03/24/22 08:48 Pulse Ox 97 03/24/22 08:48
--- NOTE | 2022-03-24 13:04 | Event Note ---
Date: 03/24/22 Patient is seen this morning and report that she is feeling much better denies any suicidal ideation or homicidal ideation. Patient is seen by psychiatric team as well this morning and discontinue 1013 patient be discharged home to continue home antipsychotic medications. No other symptoms reported at this point.
[2022-03-24 14:02] VITALS: BP 110/68
== END 2022-03-24 14:03 ==
LOC: ED 22:48 → EEVIPCON 22:48 → ED 03-24 14:03
DX: R45.851 Suicidal ideations (principal); Z13.30 Encounter for screening examination for mental health and behavioral disorders, unspecified; F20.9 Schizophrenia, unspecified; Z20.822 Contact with and (suspected) exposure to COVID-19
CPT/HCPCS: 36415; 80048; 80307; 81001; 84702; 85025; 99284; U0003; 80320; 84703; G0480

== ENCOUNTER 2022-04-11 22:27 | Emergency (ER) | payer MEDICAID ==
[2022-04-12 03:26] LABS: Basophils # (Auto) 0.1 K/mm3 (0.0-0.1); Eosinophils # (Auto) 0.3 K/mm3 (0.0-0.4); Eosinophils % (Auto) 3.9 % (0.0-4.3); Hematocrit 38.3 % (30.3-42.9); Hemoglobin 12.3 gm/dl (10.1-14.3); Lymphocytes # (Auto) 3.5 K/mm3 (1.2-5.4); Lymphocytes % (Auto) 39.8 % (13.4-35.0); Mean Corpuscular HGB Conc 32 % (30-34); Mean Corpuscular Volume 85 fl (79-97); Monocytes # (Auto) 0.5 K/mm3 (0.0-0.8); Monocytes % (Auto) 6.2 % (0.0-7.3); Platelet Count 255 K/mm3 (140-440); Red Blood Count 4.52 M/mm3 (3.65-5.03); Red Cell Distribution Width 15.6 % (13.2-15.2)
[2022-04-12 03:38] LABS: BUN/Creatinine Ratio 16; Blood Urea Nitrogen 13 mg/dL (7-17); Calcium 9.4 mg/dL (8.4-10.2); Hemolysis Index 7
--- NOTE | 2022-04-12 04:58 | Emergency Department Report ---
ED Psych HPI - General Chief Complaint: Psych Stated Complaint: DEPRESSED WITH HX Time Seen by Provider: 04/12/22 02:22 Source: EMS Mode of arrival: Ambulatory - History of Present Illness Initial Comments: Patient states she has been more sad than normal, and would like someone to talk to. Patient denies suicidal ideation/no plan, denies homicidal ideation. Medication compliant MD Complaint: feels depressed -: Gradual, days(s) Associated Psychiatric Symptoms: depression History of same: No Quality: constant Improves With: medication Worsens With: none Associated Symptoms: denies: denies other symptoms, confusion, headache - Related Data Previous Rx's Medication Instructions Recorded Last Taken Type Cetirizine HCl/Pseudoephedrine 1 each PO BID #30 tab 01/06/22 Unknown Rx [Zyrtec-D Tablet] QUEtiapine [SEROquel] 100 mg PO QHS 30 Days #30 tab 02/07/22 Unknown Rx Nitrofurantoin [place]/M-Cryst 100 mg PO Q12HR #10 capsule 02/09/22 Unknown Rx [Macrobid CAP] FLUoxetine [PROzac] 20 mg PO QDAY #30 capsule 03/24/22 Unknown Rx Allergies Allergy/AdvReac Type Severity Reaction Status Date / Time abilify Allergy Vomiting Uncoded 03/22/22 02:26 ED Review of Systems ROS: Stated complaint: DEPRESSED WITH HX Other details as noted in HPI Constitutional: denies: chills, fever Eyes: denies: eye pain, eye discharge, vision change ENT: denies: ear pain, throat pain Respiratory: denies: cough, shortness of breath, wheezing Cardiovascular: denies: chest pain, palpitations Endocrine: no symptoms reported Gastrointestinal: denies: abdominal pain, nausea, diarrhea Genitourinary: denies: urgency, dysuria, discharge Musculoskeletal: denies: back pain, joint swelling, arthralgia Skin: denies: rash, lesions Neurological: denies: headache, weakness, paresthesias Psychiatric: denies: anxiety, depression Hematological/Lymphatic: denies: easy bleeding, easy bruising ED Past Medical Hx - Past Medical History Previous Medical History?: No Hx Hypertension: No Hx Psychiatric Treatment: Yes Additional medical history: schizophrenia, anxiety, depression, bipolar - Social History Smoking Status: Unknown if ever smoked - Medications Home Medications: Home Medications Medication Instructions Recorded Confirmed Last Taken Type Cetirizine HCl/Pseudoephedrine 1 each PO BID #30 tab 01/06/22 Unknown Rx [Zyrtec-D Tablet] QUEtiapine [SEROquel] 100 mg PO QHS 30 Days #30 tab 02/07/22 Unknown Rx Nitrofurantoin [place]/M-Cryst 100 mg PO Q12HR #10 capsule 02/09/22 Unknown Rx [Macrobid CAP] FLUoxetine [PROzac] 20 mg PO QDAY #30 capsule 03/24/22 Unknown Rx ED Physical Exam - General Limitations: No Limitations General appearance: alert, anxious - Head Head exam: Present: atraumatic, normocephalic - Eye Eye exam: Present: normal appearance - ENT ENT exam: Present: mucous membranes moist - Neck Neck exam: Present: normal inspection - Respiratory Respiratory exam: Present: normal lung sounds bilaterally. Absent: respiratory distress - Cardiovascular Cardiovascular Exam: Present: regular rate, normal rhythm. Absent: systolic murmur, diastolic murmur, rubs, gallop - GI/Abdominal GI/Abdominal exam: Present: soft, normal bowel sounds - Extremities Exam Extremities exam: Present: normal inspection - Back Exam Back exam: Present: normal inspection - Neurological Exam Neurological exam: Present: alert, oriented X3 - Psychiatric Psychiatric exam: Present: depressed - Skin Skin exam: Present: warm, dry, intact, normal color. Absent: rash ED Course Vital Signs 04/11/22 04/12/22 04/12/22 22:43 02:30 08:40 Temperature 97.4 F L 98.6 F 98.4 F Pulse Rate 97 H 80 64 Respiratory 18 16 Rate Blood Pressure 130/90 Blood Pressure 126/86 104/66 [Right] O2 Sat by Pulse 95 97 Oximetry 04/12/22 04/12/22 09:54 15:25 Temperature 98.5 F Pulse Rate 74 Respiratory 16 Rate Blood Pressure Blood Pressure 117/76 [Right] O2 Sat by Pulse 97 98 Oximetry ED Medical Decision Making - Lab Data Result diagrams: 04/12/22 02:37 04/12/22 02:37 Critical care attestation.: If time is entered above; I have spent that time in minutes in the direct care of this critically ill patient, excluding procedure time. ED Disposition Clinical Impression: Depression Disposition: 01 HOME / SELF CARE / HOMELESS Is pt being admited?: No Does the pt Need Aspirin: No Condition: Stable Additional Instructions: Please follow-up with an outpatient mental health specialist within the next week. Avoid consumption of alcohol, tobacco, smoke products and recreational drugs. Please return to the emergency room right away with new pain, worsened pain, migration of pain, projectile vomiting, change in mental status, confusion, inability tolerate liquid feeds, new, worsened or different symptoms not present on the initial emergency room evaluation professional and Agency Contacts To help [facility] (30/04) CT Crisis Line: Suicide Prevention Line: Crisis Text Line: Text ``START to [phone] Emergency: 911 Outpatient [facility] Behavioral Health Resources: DEKALB: [facility] [address] [place], [place] [address] KIM: [place] [address] Sunday thru Sunday - 8am - 5pm Call to schedule an assessment for mental health and substance abuse programs [facility] Address: [address] [place] [address] Sunday thru Sunday- 7am-2pm [facility] Address: [address] [place] [address] Sunday thru Sunday: 8:30AM-5PM Professional and Agency Contacts To help [facility](30/04) CT Crisis Line: Suicide Prevention Line: Crisis Text Line: Text START to 257157 Emergency: 911 Outpatient [facility] Behavioral Health Resources: DEKALB: [facility] [address], [place] [address] CHANDLER: [address] [address] EDVIN: [address] [address] Sunday thru Sunday - 8am - 5pm GERSON: [facility] Address: [address], [place] [address] TOM: [facility] Address: [address], [place] [address] Sunday thru Sunday- 7am-2pm [facility] Address: [address], [place] [address] Sunday thru Sunday: 8:30AM-5PM [facility] [[facility] - 3-5 Days
--- NOTE | 2022-04-12 11:04 | Consultation ---
History of Present Illness - Reason for Consult Consult date: 04/12/22 Reason for consult: depression - History of Present Psychiatric Illness HPI: Patient states she has been more sad than normal, and would like someone to talk to. Patient denies suicidal ideation/no plan, denies homicidal ideation. Medication compliant. The patient was seen today. She says she has been depressed for the past two days. The patient says "not being around my kids makes me depressed." She says her children are with her parents. She says "I seen them over the holiday but I really miss them." I ask the patient why don't she go over to her parents to see them, she replies "because I can't live there. I live in a senior care." The patient denies SI/HI or hallucinations of any kind. She says "I just really needed someone to talk to." When asking the patient about medications, and possibly adjusting them, the patient replies "I don't need my meds adjusted. They work the way they are. I just want my kids." Do not recommend inpatient psychiatric treatment. The patient can be managed on an outpatient basis. Will give resources for therapy. PAST PSYCHIATRIC HISTORY Diagnoses: Schizophrenia, Bipolar Suicide attempts or Self-harm behavior: Yes Prior psychiatric hospitalizations: Yes Substance Abuse history: Denies Previous psychiatric medications tried: Seroquel haldol Outpatient treatment: Unknown PAST MEDICAL HISTORY: None reported Family Psychiatric History: None reported or documented SOCIAL HISTORY Marital Status: Single Living Arrangements: senior care Employment Status: Unemployed Access to guns/weapons: Denies Education: 10th grade History of Abuse: Denies Legal History: unknown REVIEW OF SYSTEMS Constitutional: Negative for weight loss ENT: Negative for stridor Respiratory: Negative for cough or hemoptysis All other systems reviewed and are negative MENTAL STATUS EXAMINATION General Appearance and Behavior: Age appropriate, good hygiene, wearing appropriate clothes, good eye contact, calm, cooperative Cooperation: Participating/engaged Psychomotor Behavior: Psychomotor normal Mood: Depressed Affect and affective range: congruent with stated mood Thought Process: Goal directed Thought Content: None Speech: Normal tone and pace Suicidal Ideation: Denies Homicidal Ideation: Denies Hallucinations: Denies Delusions: None elicited Impulse Control: Limited Insight and Judgment: Limited insight and poor judgment Memory: Limited Attention: attentive Orientation: Alert, oriented Diagnoses: Schizophrenia Treatment Plan d/c 1013 Continue previously prescribed medications PSYCHOTHERAPY: Supportive psychotherapy provided MEDICAL: Per primary team DELIRIUM PRECAUTIONS: Please re-orient patient frequently, keep lights on during the day, and minimize benzodiazepines and opiates as these medications could worsen patient's confusion. 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 The patient understands that if SI/HI arise she is to seek immediate assistance. The curtain feller blindstitch to further discuss safety plan and give all necessary outpatient resources. The patient to follow up with outpatient psych in 7 to 14 days upon discharge Will sign off. Thank you for this consult Case staffed with Dr. Clark Medications and Allergies Allergies Allergy/AdvReac Type Severity Reaction Status Date / Time abilify Allergy Vomiting Uncoded 03/22/22 02:26 Home Medications Medication Instructions Recorded Confirmed Last Taken Type Cetirizine HCl/Pseudoephedrine 1 each PO BID #30 tab 01/06/22 Unknown Rx [Zyrtec-D Tablet] QUEtiapine [SEROquel] 100 mg PO QHS 30 Days #30 tab 02/07/22 Unknown Rx Nitrofurantoin [place]/M-Cryst 100 mg PO Q12HR #10 capsule 02/09/22 Unknown Rx [Macrobid CAP] FLUoxetine [PROzac] 20 mg PO QDAY #30 capsule 03/24/22 Unknown Rx Mental Status Exam - Vital signs Last Vital Signs Temp 98.4 F 04/12/22 08:40 Pulse 64 04/12/22 08:40 Resp 16 04/12/22 08:40 BP 104/66 04/12/22 08:40 Pulse Ox 97 04/12/22 09:54 Results Result Diagrams: 04/12/22 02:37 04/12/22 02:37 Abnormal lab results 04/12/22 04/12/22 04/12/22 Range/Units 02:37 02:37 02:37 MCH 27 L (28-32) pg RDW 15.6 H (13.2-15.2) % Lymph % (Auto) 39.8 H (13.4-35.0) % Salicylates < 0.3 L (2.8-20.0) mg/dL Acetaminophen 5.0 L (10.0-30.0) ug/mL All other labs normal.
--- NOTE | 2022-04-12 14:52 | Event Note ---
Date: 04/12/22 The patient was evaluated in the emergency department for symptoms described in the history of present illness. He/she was evaluated in the context of the global COVID-19 pandemic, which necessitated consideration that the patient might be at risk for infection with the virus that causes COVID-19. Institutional protocols and algorithms that pertain to the evaluation of patients at risk for COVID-19 are in a state of rapid change based on information released by regulatory bodies including the CDC and federal and state organizations. These policies and algorithms were followed during the patient's care in the emergency department. Please note that these policies, procedures and recommendations changed on a rapid basis. Laboratory studies, vital signs, nursing documentation, ER documentation, and psychiatric documentation are reviewed and appreciated. Nursing team reports no acute events this morning or concerns. The patient is awake and ambulating and does not appear to be in any acute distress. The patient was deemed medically suitable for psychiatric disposition and placement during her initial ER evaluation. The patient continues to remain medically suitable for psychiatric placement and disposition. The psychiatric team have recommended that this patient does not meet criteria for 1013 hold or involuntary confinement. The nursing team reports no acute issues. The patient will be provided outpatient resources. Vital Signs 04/11/22 04/12/22 04/12/22 22:43 02:30 08:40 Temperature 97.4 F L 98.6 F 98.4 F Pulse Rate 97 H 80 64 Respiratory 18 16 Rate Blood Pressure 130/90 Blood Pressure 126/86 104/66 [Right] O2 Sat by Pulse 95 97 Oximetry 04/12/22 09:54 Temperature Pulse Rate Respiratory Rate Blood Pressure Blood Pressure [Right] O2 Sat by Pulse 97 Oximetry Lab Results 04/12/22 04/12/22 04/12/22 Range/Units 02:37 02:37 02:37 WBC 8.8 (4.5-11.0) K/mm3 RBC 4.52 (3.65-5.03) M/mm3 Hgb 12.3 (10.1-14.3) gm/dl Hct 38.3 (30.3-42.9) % MCV 85 (79-97) fl MCH 27 L (28-32) pg MCHC 32 (30-34) % RDW 15.6 H (13.2-15.2) % Plt Count 255 (140-440) K/mm3 Lymph % (Auto) 39.8 H (13.4-35.0) % [place] % (Auto) 6.2 (0.0-7.3) % Eos % (Auto) 3.9 (0.0-4.3) % Baso % (Auto) 1.0 (0.0-1.8) % Lymph # (Auto) 3.5 (1.2-5.4) K/mm3 [place] # (Auto) 0.5 (0.0-0.8) K/mm3 Eos # (Auto) 0.3 (0.0-0.4) K/mm3 Baso # (Auto) 0.1 (0.0-0.1) K/mm3 Seg Neutrophils % 49.1 (40.0-70.0) % Seg Neutrophils # 4.3 (1.8-7.7) K/mm3 Sodium 143 (137-145) mmol/L Potassium 3.8 (3.6-5.0) mmol/L Chloride 106.5 (98-107) mmol/L Carbon Dioxide 24 (22-30) mmol/L Anion Gap 16 mmol/L BUN 13 (7-17) mg/dL Creatinine 0.8 (0.6-1.2) mg/dL Estimated GFR > 60 ml/min BUN/Creatinine Ratio 16 % Glucose 92 (65-100) mg/dL Calcium 9.4 (8.4-10.2) mg/dL Salicylates < 0.3 L (2.8-20.0) mg/dL Acetaminophen (10.0-30.0) ug/mL SARS-CoV-2 (PCR) (Negative) 04/12/22 04/12/22 Range/Units 02:37 07:42 WBC (4.5-11.0) K/mm3 RBC (3.65-5.03) M/mm3 Hgb (10.1-14.3) gm/dl Hct (30.3-42.9) % MCV (79-97) fl MCH (28-32) pg MCHC (30-34) % RDW (13.2-15.2) % Plt Count (140-440) K/mm3 Lymph % (Auto) (13.4-35.0) % [place] % (Auto) (0.0-7.3) % Eos % (Auto) (0.0-4.3) % Baso % (Auto) (0.0-1.8) % Lymph # (Auto) (1.2-5.4) K/mm3 [place] # (Auto) (0.0-0.8) K/mm3 Eos # (Auto) (0.0-0.4) K/mm3 Baso # (Auto) (0.0-0.1) K/mm3 Seg Neutrophils % (40.0-70.0) % Seg Neutrophils # (1.8-7.7) K/mm3 Sodium (137-145) mmol/L Potassium (3.6-5.0) mmol/L Chloride (98-107) mmol/L Carbon Dioxide (22-30) mmol/L Anion Gap mmol/L BUN (7-17) mg/dL Creatinine (0.6-1.2) mg/dL Estimated GFR ml/min BUN/Creatinine Ratio % Glucose (65-100) mg/dL Calcium (8.4-10.2) mg/dL Salicylates (2.8-20.0) mg/dL Acetaminophen 5.0 L (10.0-30.0) ug/mL SARS-CoV-2 (PCR) Negative (Negative)
[2022-04-12 15:49] VITALS: BP 117/76
== END 2022-04-12 15:25 | disposition home or self-care (01) ==
LOC: ED 22:27
DX: F32.9 Major depressive disorder, single episode, unspecified (principal); Z20.822 Contact with and (suspected) exposure to COVID-19; F41.9 Anxiety disorder, unspecified; F20.9 Schizophrenia, unspecified
CPT/HCPCS: 36415; 80048; 85025; 99284; U0003; 80320; G0480

== ENCOUNTER 2022-05-17 01:06 | Emergency (ER) | payer MEDICAID ==
[2022-05-17 01:14] VITALS: BP 118/78
== END 2022-05-17 02:01 | disposition left against medical advice (07) ==
LOC: ED 01:06
DX: R07.89 Other chest pain (principal); Z53.21 Procedure and treatment not carried out due to patient leaving prior to being seen by health care provider

== ENCOUNTER 2022-05-17 09:05 | Emergency (ER) | payer MEDICAID | END 2022-05-17 09:10 | disposition left against medical advice (07) | LOC: ED 09:05 | DX: R45.851 Suicidal ideations (principal); Z53.21 Procedure and treatment not carried out due to patient leaving prior to being seen by health care provider ==

== ENCOUNTER 2022-05-19 00:38 | Emergency (ER) | payer MEDICAID ==
[2022-05-19 00:43] VITALS: BP 136/72
[2022-05-19] MEDS ORDERED: NALOXONE 2 MG/2 ML INJ ONE (01:31)
[2022-05-19 03:14] LABS: Basophils # (Auto) 0.1 K/mm3 (0.0-0.1); Basophils % (Auto) 0.9 % (0.0-1.8); Eosinophils # (Auto) 0.4 K/mm3 (0.0-0.4); Eosinophils % (Auto) 3.9 % (0.0-4.3); Hematocrit 35.4 % (30.3-42.9); Lymphocytes # (Auto) 3.4 K/mm3 (1.2-5.4); Lymphocytes % (Auto) 31.5 % (13.4-35.0); Mean Corpuscular HGB Conc 34 % (30-34); Mean Corpuscular Volume 83 fl (79-97); Monocytes # (Auto) 0.8 K/mm3 (0.0-0.8); Monocytes % (Auto) 7.7 % (0.0-7.3); Platelet Count 269 K/mm3 (140-440); Red Blood Count 4.25 M/mm3 (3.65-5.03)
[2022-05-19 03:21] LABS: Blood Urea Nitrogen 12 mg/dL (7-17); Calcium 8.9 mg/dL (8.4-10.2); Hemolysis Index 5
[2022-05-19 03:23] LABS: BUN/Creatinine Ratio 20
[2022-05-19] MEDS ORDERED: LORazepam 2 MG/ML VIAL IM PRN (12:22)
[2022-05-19] MEDS ORDERED: HALOPERIDOL LACTATE 5 MG/1 ML INJ IM PRN (12:22)
--- NOTE | 2022-05-19 12:24 | Emergency Department Report ---
ED General Adult HPI - General Chief complaint: Medical Clearance Stated complaint: MEDICATION REFILL Time Seen by Provider: 05/19/22 11:17 Source: patient, EMS ( EMS documentation not available at time of chart dictation ), RN notes reviewed, old records reviewed Mode of arrival: Ambulatory Limitations: No Limitations - History of Present Illness Initial comments: The patient was evaluated in the emergency department for symptoms described in the history of present illness. He/she was evaluated in the context of the global COVID-19 pandemic, which necessitated consideration that the patient might be at risk for infection with the virus that causes COVID-19. Institutional protocols and algorithms that pertain to the evaluation of patients at risk for COVID-19 are in a state of rapid change based on information released by regulatory bodies including the CDC and federal and state organizations. These policies and algorithms were followed during the patient's care in the emergency department. Please note that these policies, procedures and recommendations changed on a rapid basis. This is a 31-year-old female who presents to the department today with a request for painless medication refill. She denies physical pain. Initially she is not homicidal or suicidal. She then told nursing team that she is feeling nonspecifically suicidal without a plan. This patient presents at this department frequently and chronically for nonspecific suicidality. She is not homicidal. She does not have physical pain. She denies cough and urinary symptoms. She denies intentional overdose. - Related Data Previous Rx's Medication Instructions Recorded Last Taken Type Cetirizine HCl/Pseudoephedrine 1 each PO BID #30 tab 01/06/22 Unknown Rx [Zyrtec-D Tablet] Nitrofurantoin Dade/M-Cryst 100 mg PO Q12HR #10 capsule 02/09/22 Unknown Rx [Macrobid CAP] FLUoxetine [PROzac] 20 mg PO QDAY #30 capsule 05/19/22 Unknown Rx QUEtiapine [SEROquel] 100 mg PO QHS 30 Days #30 tab 05/19/22 Unknown Rx Allergies Allergy/AdvReac Type Severity Reaction Status Date / Time abilify Allergy Vomiting Uncoded 03/22/22 02:26 ED Review of Systems ROS: Stated complaint: MEDICATION REFILL Other details as noted in HPI Constitutional: denies: fever Eyes: denies: eye discharge ENT: denies: epistaxis Respiratory: denies: cough Cardiovascular: denies: chest pain Gastrointestinal: denies: abdominal pain Genitourinary: denies: dysuria Psychiatric: anxiety, depression. denies: homicidal thoughts ED Past Medical Hx - Past Medical History Previous Medical History?: Yes Hx Hypertension: No Hx Psychiatric Treatment: Yes Additional medical history: schizophrenia, anxiety, depression, bipolar - Surgical History Past Surgical History?: No - Social History Smoking Status: Current Every Day Smoker Substance Use Type: None - Medications Home Medications: Home Medications Medication Instructions Recorded Confirmed Last Taken Type Cetirizine HCl/Pseudoephedrine 1 each PO BID #30 tab 01/06/22 Unknown Rx [Zyrtec-D Tablet] Nitrofurantoin Dade/M-Cryst 100 mg PO Q12HR #10 capsule 02/09/22 Unknown Rx [Macrobid CAP] FLUoxetine [PROzac] 20 mg PO QDAY #30 capsule 05/19/22 Unknown Rx QUEtiapine [SEROquel] 100 mg PO QHS 30 Days #30 tab 05/19/22 Unknown Rx ED Physical Exam - General Limitations: No Limitations General appearance: alert, in no apparent distress - Head Head exam: Present: atraumatic, normocephalic - Eye Eye exam: Present: normal appearance, EOMI. Absent: nystagmus - ENT ENT exam: Present: normal exam, normal orophraynx, mucous membranes moist, normal external ear exam - Neck Neck exam: Present: normal inspection, full ROM. Absent: tenderness, meningismus - Respiratory Respiratory exam: Present: normal lung sounds bilaterally. Absent: respiratory distress, wheezes, rales, rhonchi, stridor, decreased breath sounds - Cardiovascular Cardiovascular Exam: Present: regular rate, normal rhythm, normal heart sounds. Absent: bradycardia, tachycardia, irregular rhythm, systolic murmur, diastolic murmur, rubs, gallop - GI/Abdominal GI/Abdominal exam: Present: soft. Absent: distended, tenderness, guarding, rebound, rigid, pulsatile mass - Extremities Exam Extremities exam: Present: normal inspection, full ROM, normal capillary refill, other (2+ pulses noted in the bilateral upper and lower extremities. There is no palpable cord. negative Homans sign. Muscular compartments are soft. The pelvis is stable.). Absent: pedal edema, calf tenderness - Back Exam Back exam: Present: normal inspection. Absent: tenderness, CVA tenderness (R), CVA tenderness (L), paraspinal tenderness, vertebral tenderness - Neurological Exam Neurological exam: Present: alert, oriented X3, other (No facial droop. Tongue midline. Extraocular movements intact bilaterally. Facial sensation intact to light touch in V1, V2, V3 distribution bilaterally. 5 and a 5 strength in 4 extremities. Sensation intact to light touch in 4 extremities.). Absent: motor sensory deficit - Psychiatric Psychiatric exam: Present: flat affect. Absent: depressed, agitated, homicidal ideation - Skin Skin exam: Present: warm, dry, intact, normal color. Absent: rash ED Course Vital Signs 05/19/22 00:40 Temperature 98.3 F Pulse Rate 95 H Respiratory 18 Rate Blood Pressure 136/72 O2 Sat by Pulse 97 Oximetry - Reevaluation(s) Reevaluation #1: 05/19/22 13:04 Patient cooperative and asking to be discharged. ED Medical Decision Making - Lab Data Result diagrams: 05/19/22 02:49 05/19/22 02:49 Vital Signs 05/19/22 00:40 Temperature 98.3 F Pulse Rate 95 H Respiratory 18 Rate Blood Pressure 136/72 O2 Sat by Pulse 97 Oximetry Lab Results 05/19/22 05/19/22 05/19/22 Range/Units 02:49 02:49 02:49 WBC (4.5-11.0) K/mm3 RBC (3.65-5.03) M/mm3 Hgb (10.1-14.3) gm/dl Hct (30.3-42.9) % MCV (79-97) fl MCH (28-32) pg MCHC (30-34) % RDW (13.2-15.2) % Plt Count (140-440) K/mm3 Lymph % (Auto) (13.4-35.0) % Dade % (Auto) (0.0-7.3) % Eos % (Auto) (0.0-4.3) % Baso % (Auto) (0.0-1.8) % Lymph # (Auto) (1.2-5.4) K/mm3 Dade # (Auto) (0.0-0.8) K/mm3 Eos # (Auto) (0.0-0.4) K/mm3 Baso # (Auto) (0.0-0.1) K/mm3 Seg Neutrophils % (40.0-70.0) % Seg Neutrophils # (1.8-7.7) K/mm3 Sodium 137 (137-145) mmol/L Potassium 3.9 (3.6-5.0) mmol/L Chloride 101.9 (98-107) mmol/L Carbon Dioxide 23 (22-30) mmol/L Anion Gap 16 mmol/L BUN 12 (7-17) mg/dL Creatinine 0.6 (0.6-1.2) mg/dL Estimated GFR > 60 ml/min BUN/Creatinine Ratio 20 % Glucose 115 H (65-100) mg/dL Calcium 8.9 (8.4-10.2) mg/dL HCG, Qual (Negative) Salicylates < 0.3 L (2.8-20.0) mg/dL Acetaminophen 5.0 L (10.0-30.0) ug/mL Plasma/Serum Alcohol (0-0.07) % 05/19/22 05/19/22 05/19/22 Range/Units 02:49 02:49 02:49 WBC 10.8 (4.5-11.0) K/mm3 RBC 4.25 (3.65-5.03) M/mm3 Hgb 12.0 (10.1-14.3) gm/dl Hct 35.4 (30.3-42.9) % MCV 83 (79-97) fl MCH 28 (28-32) pg MCHC 34 (30-34) % RDW 15.0 (13.2-15.2) % Plt Count 269 (140-440) K/mm3 Lymph % (Auto) 31.5 (13.4-35.0) % Dade % (Auto) 7.7 H (0.0-7.3) % Eos % (Auto) 3.9 (0.0-4.3) % Baso % (Auto) 0.9 (0.0-1.8) % Lymph # (Auto) 3.4 (1.2-5.4) K/mm3 Dade # (Auto) 0.8 (0.0-0.8) K/mm3 Eos # (Auto) 0.4 (0.0-0.4) K/mm3 Baso # (Auto) 0.1 (0.0-0.1) K/mm3 Seg Neutrophils % 56.0 (40.0-70.0) % Seg Neutrophils # 6.0 (1.8-7.7) K/mm3 Sodium (137-145) mmol/L Potassium (3.6-5.0) mmol/L Chloride (98-107) mmol/L Carbon Dioxide (22-30) mmol/L Anion Gap mmol/L BUN (7-17) mg/dL Creatinine (0.6-1.2) mg/dL Estimated GFR ml/min BUN/Creatinine Ratio % Glucose (65-100) mg/dL Calcium (8.4-10.2) mg/dL HCG, Qual Negative (Negative) Salicylates (2.8-20.0) mg/dL Acetaminophen (10.0-30.0) ug/mL Plasma/Serum Alcohol < 0.01 (0-0.07) % - Medical Decision Making Differential diagnosis, including but not limited to: Medication refill, medical screening examination, behavioral health screening examination Assessment and plan: 31-year-old female with a benign, unremarkable and noncontributory physical exam who is calm and cooperative, not homicidal, and not agitated or combative or violent. This patient frequently expresses suicidality at this department, likely as a means of secondary gain. Placing this patient on 1013 hold and involuntary confinement will serve to reinforce maladaptive coping mechanisms and behaviors, such as presenting to the emergency room when presented with challenging social situations. Her laboratory studies are nonactionable. Her physical examination is unremarkable. She does not appear to have an emergent medical condition present at this time. Recent urinalysis are reviewed and appreciated, she has had negative urine cultures in the recent past. She is seen in conjunction with the psychiatric team, who advised that the patient does not meet criteria for 1013 hold or involuntary confinement, and I am in agreement with this. Patient observed for hours, resting comfortably on her side, in no acute distress. Critical care attestation.: If time is entered above; I have spent that time in minutes in the direct care of this critically ill patient, excluding procedure time. ED Disposition Clinical Impression: Medication refill, Encounter for behavioral health screening, Encounter for medical screening examination Disposition: 01 HOME / SELF CARE / HOMELESS Is pt being admited?: No Does the pt Need Aspirin: No Condition: Good Additional Instructions: Please follow-up with an outpatient mental health specialist within the next week. Avoid consumption of alcohol, tobacco, smoke products and recreational drugs. Please return to the emergency room right away with new pain, worsened pain, migration of pain, projectile vomiting, change in mental status, confusion, inability tolerate liquid feeds, new, worsened or different symptoms not present on the initial emergency room evaluation professional and Agency Contacts To help [facility] Cr[facility] (30/04) [place] Crisis Line: Suicide Prevention Line: Crisis Text Line: Text ``START to 093511 Emergency: 911 Outpatient COMMUNITY Behavioral Health Resources: [facility]: [facility] [address] [place], [place] [address] [place]: [facility] [address] [place] [address] Sunday thru Sunday - 8am - 5pm Call to schedule an assessment for mental health and substance abuse programs [facility] Address: [address] [place] [address] Sunday thru Sunday- 7am-2pm [facility] Address: [address] [place] [address] Sunday thru Sunday: 8:30AM-5PM OUTPATIENT MENTAL HEALTH RESOURCES [facility], [facility] Kelly Mooney MD: [address] [place] [address], [address] [place] [address] [place] [address] [place] [facility]: [facility] [address] [place] [address] [place] [address] [phone] [facility]: [facility] Healthcare: [address] [facility] [address] [facility] [place] [address] [facility] [id number] [place] [facility]: Triston Ordaz MD: [id number] [facility] [address] [facility] [address] [place] [facility]: [address] [place], [place] [address] [place] [address] [phone] [place] CRISIS AND ACCESS LINE: Prescriptions: QUEtiapine [SEROquel] 100 mg PO QHS 30 Days #30 tab FLUoxetine [PROzac] 20 mg PO QDAY #30 capsule Referrals: [facility] [Outside] - 3-5 Days [facility] [Outside] - 3-5 Days
--- NOTE | 2022-05-19 12:26 | Progress Note ---
Subjective - Reason for Consult Consult date: 05/19/22 Reason for consult: out of meds - Chief Complaint Chief complaint: The patient was seen today. She is a known patient to me. The patient says she came here from her [place] [facility]. She says "I need refills on my meds." I ask the patient did she contact her primary care doctor. She replies "no." The patient denies SI/HI or hallucinations. She also denies any fear of endangerment. PAST PSYCHIATRIC HISTORY Diagnoses: Schizophrenia, Bipolar Suicide attempts or Self-harm behavior: Yes Prior psychiatric hospitalizations: Yes Substance Abuse history: Denies Previous psychiatric medications tried: Seroquel, haldol Outpatient treatment: Unknown PAST MEDICAL HISTORY: None reported Family Psychiatric History: None reported or documented SOCIAL HISTORY Marital Status: Single Living Arrangements: [place] [facility] Employment Status: Unemployed Access to guns/weapons: Denies Education: 10th grade History of Abuse: Denies Legal History: unknown REVIEW OF SYSTEMS Constitutional: Negative for weight loss ENT: Negative for stridor Respiratory: Negative for cough or hemoptysis All other systems reviewed and are negative MENTAL STATUS EXAMINATION General Appearance and Behavior: Age appropriate, good hygiene, wearing appropriate clothes, good eye contact, calm, cooperative Cooperation: Participating/engaged Psychomotor Behavior: Psychomotor normal Mood: Depressed Affect and affective range: congruent with stated mood Thought Process: Goal directed Thought Content: None Speech: Normal tone and pace Suicidal Ideation: Denies Homicidal Ideation: Denies Hallucinations: Denies Delusions: None elicited Impulse Control: Limited Insight and Judgment: Limited insight and poor judgment Memory: Limited Attention: attentive Orientation: Alert, oriented Diagnoses: Schizophrenia Treatment Plan Seroquel 100m gpo qhs Prozac 20mg po daily PSYCHOTHERAPY: Supportive psychotherapy provided MEDICAL: Per primary team DELIRIUM PRECAUTIONS: Please re-orient patient frequently, keep lights on during the day, and minimize benzodiazepines and opiates as these medications could worsen patient's confusion. [employer] INST[employer]ER: Per medical team DISPOSITION: Do not recommend acute psychiatric inpatient treatment. The patient understands that if SI/HI arise she is to seek immediate assistance. The customs and border protection inspector to further discuss safety plan and give all necessary outpatient resources. The patient to follow up with outpatient psych in 7 to 14 days upon discharge Will sign off. Thank you for this consult Case staffed with Dr. Clark Mental Status Exam - Vital signs Last Vital Signs Temp 98.3 F 05/19/22 00:40 Pulse 95 H 05/19/22 00:40 Resp 18 05/19/22 00:40 BP 136/72 05/19/22 00:40 Pulse Ox 97 05/19/22 00:40
== END 2022-05-19 19:02 | disposition home or self-care (01) ==
LOC: ED 00:38
DX: Z13.30 Encounter for screening examination for mental health and behavioral disorders, unspecified (principal); Z76.0 Encounter for issue of repeat prescription; F17.200 Nicotine dependence, unspecified, uncomplicated; Z91.09 Other allergy status, other than to drugs and biological substances
CPT/HCPCS: 36415; 80048; 80320; 84703; 85025; 99283; G0480; J2310